=== PATIENT | male | born 1950 | race Caucasian/White ===

== ENCOUNTER 2023-08-21 08:59 | Day surgery (SDC) | payer BC, SELFPAY ==
[2023-08-21] VITALS (13 sets, daily range): BP systolic 108–167; BP diastolic 48–78; BMI 35.2
[2023-08-21] MEDS: NSS 324 ML IV ×2 (09:37→09:45)
[2023-08-21 09:38] LABS: Glucose - Point of Care 357 mg/dl (70-99)
[2023-08-21] MEDS: LOW STRENGTH ASPIRIN 81 MG PO (09:38)
[2023-08-21 09:44] LABS: Hematocrit 36.9 % (39.0-52.0); Hemoglobin 12.5 g/dL (13.0-18.0); Mean Corp Hgb Conc. 33.9 g/dL (33.0-37.0); Mean Corpuscular Hgb 30.2 pg (27.0-31.0); Mean Corpuscular Volume 89.1 fL (80.0-94.0); Platelet Count 748 10^3/uL (130-400); Red Blood Cell Count 4.14 10^6/uL (4.70-6.10); Red Cell Dist. Width 17.7 % (11.5-14.5); White Blood Cell Count 11.8 10^3/uL (4.8-10.8)
[2023-08-21 10:18] LABS: Mean Platelet Volume 11.1 fL (7.4-10.4)
[2023-08-21] MEDS: NOVOLOG vial 4 UNITS SC (10:25)
--- NOTE | 2023-08-21 11:59 | ITS.CL.CATH ---
[employer] - Catheterization
Cardiac Catheterization
Procedure Report:
LEFT HEART CATHETERIZATION
Date of Procedure: August 21, 2023
Procedures performed:
1: Coronary angiography
2: Left ventriculography
Primary Care Physician: Dr. Marsha Alfredo
Primary Automatic Bow Maker Machine Tender: Myself
INDICATION: The patient is a 73-year-old male with a past medical history of coronary artery disease status post right coronary stenting in the setting of an inferior SD in 2014, hypertension, poorly controlled diabetes mellitus, ongoing smoking,
and regular EtOH use. He had a drop in ejection fraction on echocardiography and nuclear perfusion scan done on August showed both RCA and LAD territory perfusion defects consistent with extensive inferior and inferolateral infarct with
LAD apical infarct and anterior and anteroseptal ischemia. Gated ejection fraction was 25%. Ejection fraction by echo in January of last year was estimated at 45 to 50% which I suspect is more accurate. He has had absolutely no symptoms.
ACCESS: The patient was prepped and draped in usual sterile fashion. A 6 [place] sheath was placed in the right radial artery using the Seldinger over the wire technique.
HEMODYNAMIC FINDINGS (mmHg):
LV(s/d,EDP): 142/13, 23
Ao(s/d,m): 142/60, 92
ANGIOGRAPHIC FINDINGS:
Single-plane Left Ventriculography in ESCALANTE Projection: Inferobasal akinesis. Moderate to severe diaphragmatic hypokinesis. Severe apical hypokinesis. Mild to moderate anterolateral hypokinesis. Overall moderate to severe LV dysfunction with a
visually estimated ejection fraction of 35 to 40%. No significant mitral regurgitation.
Coronary Angiography:
Dominance: Right
Left Main: Large caliber, patent.
Left Anterior Descending: The LAD is heavily calcified throughout the proximal and midportion. The proximal LAD has diffuse 40 to 50% disease and gives rise to a fairly large high bifurcating diagonal branch that is widely patent with diffuse
moderate luminal irregularities. The mid LAD has a preocclusive heavily calcified 95% stenosis with preserved distal flow into a moderately diseased mid and distal LAD that appears to be a reasonable surgical target. This disease is markedly
progressed compared to prior angiography in 2015.
Ramus intermedius: There is a fairly large ramus intermedius branch which is widely patent.
Left Circumflex: The left circumflex is a medium caliber nondominant system that gives rise to 2 medium caliber obtuse marginal branches. These vessels have mild luminal irregularities with normal distal flow and no obstructive disease.
Right Coronary: The right coronary artery is occluded in the midportion. The large distal dominant system fills via left to right collaterals. There appears to be a reasonable surgical target in the right PDA.
Fluoroscopy Time (min): 5.2
Radiation Dose (mGy): 647
DAP (Gy.cm2): 49
Closure device: None. A TR band was applied for hemostasis at the right wrist.
Complications: None.
ASSESSMENT:
1: Complex calcific two-vessel obstructive coronary disease.
2: LV systolic dysfunction with no significant mitral regurgitation.
CONCLUSIONS and RECOMMENDATIONS:
1: CT surgical evaluation for CABG. Ideally the patient would get a BOURNE to LAD and a graft to the distal right coronary system.
Michell Platt M.D.
Copy to: Dr. Marsha Alfredo, Dr. Bishop Denise
[2023-08-21 12:03] LABS: Blood Urea Nitrogen 34 mg/dl (9-20); Calcium 8.8 mg/dl (8.4-10.2); Carbon Dioxide 23 mmol/L (22-30); Chloride 107 mmol/L (98-107); Estimated Creatinine Clearance 89 ml/min; Glucose 284 mg/dl (70-99); Potassium 4.6 mmol/L (3.5-5.1); Sodium 135 mmol/L (135-145); eGFR > 60.00
[2023-08-21 12:07] LABS: Glucose - Point of Care 267 mg/dl (70-99)
[2023-08-21] MEDS: NSS 1000 IV (12:33)
[2023-08-21] MEDS: NOVOLOG FLEXPEN-LOW RESISTANCE 3 UNITS SC (12:42)
--- NOTE | 2023-08-21 12:50 | PTCARENOTE ---
1230: FORTUNATO Flores at bedside to speak with pt. and give appointment info.
[2023-08-21 13:02] LABS: Glycohemoglobin (HgbA1c) 11.4 % (4.0-5.6)
== END 2023-08-21 14:50 | disposition home or self-care (01) ==
LOC: CATH 08:59
PROVIDERS: Nurse Practitioner; ATTENDING PHYSICIAN Internal Medicine Interventional Cardiology; CONSULT PHYSICIAN Thoracic Surgery (Cardiothoracic Vascular Surgery); FAMILY PHYSICIAN Family Medicine
DX: I25.10 Atherosclerotic heart disease of native coronary artery without angina pectoris (principal); Z87.891 Personal history of nicotine dependence; E11.9 Type 2 diabetes mellitus without complications; I10 Essential (primary) hypertension; I25.2 Old myocardial infarction; Z95.5 Presence of coronary angioplasty implant and graft
CPT/HCPCS: 80048; 82962; 83036; 85027; 93005; 93458; C1769; C1894; Q9967

== ENCOUNTER → 2023-09-06 07:01 | Outpatient (REF) | payer MEDICARE, OTHER, SELFPAY | LOC: RAD 07:01 | PROVIDERS: ATTENDING PHYSICIAN Thoracic Surgery (Cardiothoracic Vascular Surgery); FAMILY PHYSICIAN Family Medicine | DX: I25.10 Atherosclerotic heart disease of native coronary artery without angina pectoris (principal); Z01.818 Encounter for other preprocedural examination | CPT/HCPCS: 71250 ==

== ENCOUNTER 2023-09-16 08:18 | Inpatient (IN) | payer MEDICARE, OTHER, SELFPAY ==
[2023-09-10 08:30] VITALS: BMI 36.5
[2023-09-10 09:15] LABS: % Eosinophils 2.5 % (0-6); % Immature Granulocytes 0.7 % (0-0.5); % Lymphocytes 16.5 % (20.5-51.1); % Neutrophils 73.3 % (42.2-75.2); Absolute Basophils 0.2 10^3/uL (0-0.2); Absolute Eosinophils 0.3 10^3/uL (0-0.7); Absolute Immature Granulocytes 0.1 10^3/uL (0-0.05); Absolute Lymphocytes 1.7 10^3/uL (1.2-3.4); Absolute Monocytes 0.5 10^3/uL (0.1-0.6); Absolute Neutrophils 7.6 10^3/uL (1.4-6.5); Hematocrit 36.8 % (39.0-52.0); Hemoglobin 12.3 g/dL (13.0-18.0); Mean Corp Hgb Conc. 33.4 g/dL (33.0-37.0); Mean Corpuscular Volume 89.8 fL (80.0-94.0); Nucleated Red Blood Cells % 0 % (-); Platelet Count 726 10^3/uL (130-400); Red Cell Dist. Width 17.7 % (11.5-14.5); White Blood Cell Count 10.3 10^3/uL (4.8-10.8)
[2023-09-10 09:26] LABS: INR 1.13; PT 14.3 Sec (11.4-14.6)
[2023-09-10 09:27] LABS: APTT 35.9 Sec (23.4-35.0)
[2023-09-10 09:56] LABS: ALT (SGPT) 22 U/L (0-50); AST (SGOT) 29 U/L (17-59); Albumin 4.4 g/dl (3.5-5.0); Alkaline Phosphatase 70 U/L (38-126); Blood Urea Nitrogen 33 mg/dl (9-20); Calcium 9.2 mg/dl (8.4-10.2); Carbon Dioxide 27 mmol/L (22-30); Chloride 104 mmol/L (98-107); Estimated Creatinine Clearance 72 ml/min; Glucose 180 mg/dl (70-99); Potassium 5.4 mmol/L (3.5-5.1); Sodium 137 mmol/L (135-145); Total Bilirubin 0.5 mg/dl (0.2-1.3); Total Protein 7.1 g/dl (6.3-8.2); eGFR > 60.00
[2023-09-10 10:17] LABS: Urine Albumin Trace (Neg - Trace); Urine Bilirubin Negative (Negative); Urine Character Clear (Clear); Urine Color Yellow; Urine Glucose 1+ (Negative); Urine Ketone Negative (Negative); Urine Leukocyte Negative (Negative); Urine Nitrite Negative (Negative); Urine Occult Blood Negative (Negative); Urine Specific Gravity 1.015 (<1.030); Urine Urobilinogen Negative (Neg - 1+); Urine pH 6.5 (5.0-9.0)
--- NOTE | 2023-09-10 10:53 | CM ---
spoke to pt in PAT's, we discussed preop CABG teaching including sternal and driving restrictions, he is prev indep, lives with his in a 2 story home with 2 steps to enter. he has the cardiac educ book, soap and instructins, he is agreeable to
a f/u visit from the ct transitional care nurses after dc. plan isf or CABG 09/15, cm role explained and all questions answered.
[2023-09-16] VITALS (16 sets, daily range): BP systolic 79–131; BP diastolic 46–71; BMI 34.7
--- NOTE | 2023-09-16 00:31 | W.PN.CT ---
Assessment / Plan
-
Assessment:
-S/p Off-pump CABG x 2 (in situ BOURNE to LAD, aorta to RSVG to RPDA)/Endoscopic harvest of right lower extremity
-Severe 2V CAD (involving LAD/RCA)
-Hx Inf. GA S/P PCI with JANNA to prox RCA, 07/11/2014
-ICM (LVEF 35-40% per cath 08/2023), improved to 50% per intraop CARLOS
-HTN
-HLD
-IDT2DM (A1C 11.4)
-Class 2 obesity (BMI 36.5)
-Suspected GBAY
-Active tobacco abuse (60 pk/yr)
-Hx hyperkalemia
-Acute postop blood loss/Anemia on chronic anemia (stable without transfusion)
-Acute postop thrombocytosis on chronic thrombocytosis (stable)
-Acute postop atelectasis/pleural effusion
-Acute postop hypocalcemia
-Acute postop hypovolemia with subsequent hypervolemia
Plan:
-No major issues overnight. Hemodynamically and neurologically intact
-Successfully extubated yesterday 09/16/23 @ 1855
-Weaned off of Levophed gtt last night, remains on insulin gtt per protocol
-Last CI , u/o since OR mL
-Monitor chest tube output: 2meds , L pleural
-D/C'd swan and a-line this AM @ 0430
-Transfer to tele phase tomorrow once off insulin gtt. Will benefit from diabetes education/management given hgb A1C of 11.4
-D/C ng catheter
-Maintain cordis
-No temporary pacer
-Cont. current meds (ASA, Amiodarone, Lipitor, Lopressor- held last night given hypotension on Levophed; add Plavix)
-Encourage use of IS
-Wean off of O2 as tolerated
-OOB into chair/Ambulate
Subjective
-
Date of Service: September 16, 2023
Objective Data
-
PT 14.3 Sec (11.4-14.6) 09/10/23 08:45
INR 1.13 09/10/23 08:45
APTT 35.9 Sec (23.4-35.0) H 09/10/23 08:45
--- NOTE | 2023-09-16 08:00 | PTCARENOTE ---
Pt admitted, to CVICU, Surgical clip and prep preformed. ABO and labs obtained. Pt given pre op meds as ordered. Questions answered.
--- NOTE | 2023-09-16 08:41 | CM ---
Reviewed chart. Mr. Valdez is in the operating room today. Prior to admission he resides with his spouse in a two story home with two steps to enter. Will need to see his functional level post surgery to see if he will have any skilled care
needs. Medical work-up in progress. The discharge plan is undetermined at this time.
[2023-09-16] MEDS: BACTROBAN 2% OINTMENT 1 APPLIC NASAL ×2 (08:50→20:56)
[2023-09-16] MEDS: COREG 3.125 MG PO (08:51)
[2023-09-16] MEDS: PROTONIX 40 MG PO (08:51)
[2023-09-16 08:52] LABS: Hemoglobin 12.4 g/dL (13.0-18.0); Mean Corp Hgb Conc. 32.6 g/dL (33.0-37.0); Mean Corpuscular Hgb 29.5 pg (27.0-31.0); Mean Corpuscular Volume 90.3 fL (80.0-94.0); Mean Platelet Volume 11.1 fL (7.4-10.4); Platelet Count 778 10^3/uL (130-400); Red Blood Cell Count 4.21 10^6/uL (4.70-6.10); Red Cell Dist. Width 18.4 % (11.5-14.5); White Blood Cell Count 10.5 10^3/uL (4.8-10.8)
[2023-09-16 08:54] LABS: Blood Urea Nitrogen 34 mg/dl (9-20); Calcium 9.5 mg/dl (8.4-10.2); Carbon Dioxide 27 mmol/L (22-30); Chloride 108 mmol/L (98-107); Estimated Creatinine Clearance 66 ml/min; Glucose 63 mg/dl (70-99); Magnesium 2.1 mg/dl (1.6-2.3); Potassium 4.9 mmol/L (3.5-5.1); Sodium 140 mmol/L (135-145); eGFR > 60.00
--- NOTE | 2023-09-16 09:21 | PTCARENOTE ---
Blood sugar on lab work 63, CT PA notified, INT placed in Rt AC, 1/2 amp D50 ordered will administer and recheck per protocol.
[2023-09-16] MEDS: DEXTROSE 50% SYRINGE 12.5 GRAMS IV (09:28)
[2023-09-16] MEDS: MAGNESIUM OXIDE 500 MG PO (09:29)
[2023-09-16 09:53] LABS: Glucose - Point of Care 127 mg/dl (70-99)
--- NOTE | 2023-09-16 11:55 | W.CVOR.SURPR ---
CVOR Surgeon Immed Pre Op
-
I have examined this patient prior to performance of the scheduled procedure.
The patient's condition is unchanged from the time of the dictated/written History and
Physical and the patient is able to undergo the scheduled procedure.
Sternotomy CABG x 2 +/- ROSS Clip
--- NOTE | 2023-09-16 12:23 | CON.INTV ---
Consultation
Consultation Request
Date/Time Consultation Requested: 09/16/2023-1 PM
Date/Time Consultation Performed: 09/16/2023-1:30 PM
Requesting Provider: Cardiothoracic surgery
Performing Provider: Dr. Linder
Reason for Consultation: Postop ventilator/critical care management
Medical History
-
Chief Complaint: CAD
History of Present Illness:
73-year-old male with underlying hypertension, hyperlipidemia, diabetes and CAD underwent CABG and cap maker consulted for postoperative ventilator/critical care management 09/16/2023. Patient is sedated on the ventilator and review of systems was
unobtainable. Operative records were reviewed. Pressors and ventilator settings were reviewed and adjusted.
Past Medical History
Past Medical History: None (Hypertension. Hyperlipidemia. Hyperglycemia. CAD. Diabetes. Neuropathy.)
Social History
Tobacco: Smoker (5-10 for 50 years)
Alcohol: Occasional
Drug: None
Personal:
Living: With Family
Occupational Exposures: No known asbestos exposure
Environmental Exposures: No known tuberculosis exposure
Family History
Family History: Other (Hfzwcev-lirrcs-pzewh orange, mother-aneurysm, Father leukemia)
Allergies / Home Medications
Allergies
Allergy/AdvReac Type Severity Reaction Status Date / Time
pollen extracts Allergy SEASONAL Verified 09/16/23 08:22
ALLERGIES
Home Medications
Medication Instructions Recorded Confirmed Last Taken Type
aspirin 81 mg tablet,delayed 81 mg PO DAILY ##0 07/13/14 09/16/23 09/15/23 08:00 Rx
release
carvedilol 3.125 mg tablet 3.125 mg PO BID ##60 07/13/14 09/16/23 09/15/23 08:00 Rx
atorvastatin 40 mg tablet 40 mg PO DAILY 08/21/23 09/16/23 09/15/23 08:00 History
fenofibric acid (choline) 45 mg 45 mg PO DAILY 08/21/23 09/16/23 09/15/23 08:00 History
capsule,delayed release
hydroxyurea 500 mg capsule 1,000 mg PO DAILY 08/21/23 09/16/23 09/15/23 08:00 History
insulin NPH isoph U-100 human 100 23 unit SC HS 08/21/23 09/16/23 09/15/23 18:00 History
unit/mL subcutaneous suspension
(Humulin N NPH U-100 Insulin
(isophane susp))
insulin degludec 100 unit/mL (3 70 unit SC 08/21/23 09/16/23 09/15/23 18:00 History
mL) subcutaneous pen (Tresiba
FlexTouch U-100 insulin)
insulin lispro 100 unit/mL 0 sliding scale dose SC ACHS 08/21/23 09/16/23 09/15/23 16:00 History
subcutaneous pen
uggftldy-hy-gmtvm 300 mcg-K 60 1 tab PO DAILY 08/21/23 09/16/23 09/08/23 08:00 History
mcg-lycop 600 mcg-lutein 300 mcg
tablet (Centrum Silver Men)
Review of Systems
-
Unable to Obtain full review of systems at this time due to: Patient Intubation
Vitals / Labs / Diagnostic Testing
Vital Signs
Temp Pulse Pulse Ox
97.7 F 70 94
09/16/23 08:56 09/16/23 08:56 09/16/23 08:56
Lab Data
09/16/23 08:27
09/16/23 08:27
Diagnostic Testing:
Physical Exam
-
Exam:
Well-nourished and well-developed in no apparent distress
HEENT-atraumatic, normocephalic, oral tracheal intubation
Heart-regular rate and rhythm-no murmurs, rubs or gallops
Chest-clear to auscultation, no wheezes, crackles, median sternotomy bandage is not removed
Abdomen soft nondistended
Extremities-no cyanosis, clubbing, edema and good peripheral pulses
Integument-intact, no rashes, lesions or ecchymosis
Neurologically not alert, not oriented, not moving any of his extremities sedated on a ventilator
Assessment
-
73-year-old male with underlying hypertension, hyperlipidemia, diabetes and CAD underwent CABG and cap maker consulted for postoperative ventilator/critical care management 09/16/2023.
Assessment
Symptomatic coronary artery disease
Status post CABG x 2-BOURNE-LAD, aorta to RSVG to [facility]--Dr. Denise-09/16/2023
Mild anemia-hemoglobin 12.4-normocytic
Thrombocytosis-platelet count 772
Conditions present prior to admission:
Hypertension.
Hyperlipidemia.
Hyperglycemia.
CAD.
Cigarette smoker
Diabetes.
Neuropathy.
Obesity-BMI 34
Plan
Ventilator settings reviewed
FiO2 will be weaned
Minute ventilation will be adjusted
Arterial blood gases will be monitored
Spontaneous breathing trial will be attempted with hopeful extubation after anesthesia/sedation wear off
Pulmonary artery catheter parameters will be followed
Pressors/antihypertensive/inotropes/diuretics will be provided as needed
Monitor chest tube output
Monitor hemoglobin
Monitor platelet count and coags
Transfuse blood product if needed
CT surgery following chest tubes
Monitor blood sugar
Insulin drip per protocol
Aspiration precautions
VAP prevention protocol
DVT prophylaxis
Early nutrition
Early mobilization
Ongoing smoking cessation counseling
Outpatient pulmonary/sleep disorders workup-at risk for GABY
Critical care statement: A total of 46 minutes of critical care time was provided for this patient today. This includes management of ventilator, spontaneous breathing trial, arterial blood gases, pressors, of unstable vital signs, evaluation of the
patient at bedside, reviewing the patient's pertinent medical records including radiographs, microbiology, laboratory evaluations, and discussion with primary team and critical care nursing.
Diagnostic data:
CT chest 09/06/2023-no acute disease in the chest
Spirometry 09/10/2023-FEV1 2.7-94%, FVC 3.4-86%. Mild restriction
Echocardiogram 07/11/2014-EF 50-55%, normal diastolic filling pattern, trivial mitral regurgitation, PA systolic 23-28
Cardiac catheterization 08/21/2023-complex calcific two-vessel obstructive coronary disease EF 35-40% with no significant valvular disease
Data Reviewed
-
PFT: Report reviewed by me
EKG: Report reviewed by me
Radiology: Report reviewed by me
CT Scan: Report reviewed by me
Medical Tests (Nuc Med, Echo etc): Report reviewed by me
Labs: Labs reviewed by me
Critical Care Time (in minutes): 55
[2023-09-16 12:56] LABS: ACT+ - POC 98 Seconds (82-134)
[2023-09-16 12:59] LABS: B.E. - POC -1.3 mmol/L; Glucose - POC 79 mg/dl (65-99); HCO3 - POC 26 mmol/L (21-29); Hematocrit - POC 36 % PCV (42-52); Hemodilution- POC Yes; Hemoglobin Calculated - POC 12.1; Ionized Calcium - POC 1.28 mmol/L (1.12-1.27); O2 Saturation %Calculated-POC 98.2 5 (92-96); PCO2 - POC 52 mmHg (35-45); PO2 - POC 121 mmHg (80-100); Potassium - POC 3.8 mmol/L (3.6-5.0); Sodium - POC 144 mmol/L (135-145)
[2023-09-16 13:02] LABS: Urine Albumin Trace (Neg - Trace); Urine Bilirubin Negative (Negative); Urine Character Clear (Clear); Urine Color Yellow; Urine Glucose Negative (Negative); Urine Ketone Negative (Negative); Urine Leukocyte Negative (Negative); Urine Nitrite Negative (Negative); Urine Occult Blood Negative (Negative); Urine Urobilinogen Negative (Neg - 1+)
[2023-09-16] MEDS: ANCEF 10 IV (13:15)
[2023-09-16 14:28] LABS: ACT+ - POC 321 Seconds (82-134)
[2023-09-16 14:33] LABS: B.E. - POC -3.7 mmol/L; Glucose - POC 76 mg/dl (65-99); HCO3 - POC 23 mmol/L (21-29); Hematocrit - POC 30 % PCV (42-52); Hemodilution- POC No; Hemoglobin Calculated - POC 10.2; Ionized Calcium - POC 1.19 mmol/L (1.12-1.27); O2 Saturation %Calculated-POC 98.7 5 (92-96); PCO2 - POC 45 mmHg (35-45); PO2 - POC 134 mmHg (80-100); Potassium - POC 3.8 mmol/L (3.6-5.0); Sodium - POC 143 mmol/L (135-145); pH - POC 7.31 (7.35-7.45)
[2023-09-16 15:23] LABS: ACT+ - POC 101 Seconds (82-134)
[2023-09-16 15:37] LABS: B.E. - POC -4.1 mmol/L; Glucose - POC 79 mg/dl (65-99); HCO3 - POC 22 mmol/L (21-29); Hematocrit - POC 28 % PCV (42-52); Hemodilution- POC No; Hemoglobin Calculated - POC 9.5; Ionized Calcium - POC 1.15 mmol/L (1.12-1.27); PCO2 - POC 44 mmHg (35-45); PO2 - POC 99 mmHg (80-100); Potassium - POC 3.9 mmol/L (3.6-5.0); Sodium - POC 144 mmol/L (135-145); pH - POC 7.31 (7.35-7.45)
--- NOTE | 2023-09-16 15:38 | W.PN.CT.SURG ---
CT Surgery Operative Note
-
CARDIAC SURGERY OPERATIVE REPORT
Preoperative Diagnosis: Multivessel Coronary Artery Disease with proximal and mid LAD disease, DISH MAKER of the RCA
Postoperative Diagnosis: Same
Procedure(s) Performed:
1. Standard sternotomy
2. Off-pump CABG x 2 [in situ BOURNE to LAD, aorta to RSVG to RPDA]
3. Transesophageal echocardiography
4. Endoscopic harvest of right lower extremity
Date of Surgery: 09/16/23
Comorbidities:
1. Multivessel CAD with prior RI and stents
2. Hypertension
3. Hyperlipidemia
4. Diabetes mellitus
5. Diabetic neuropathy
6. Dilated ischemic cardiomyopathy
Attending Surgeon: Good Denise MD, MS
Assistants: Good Smith PA-C (present and necessary to investment sales assistant, endoscopic vein harvest, retraction, suction, exposure, suture management, and wound closure under my direction)
Anesthesiology: Tahir Carty MD and Lisseth Wu CRNA
Scrub and Circulating RNs: Max Pozo, RN, Sherrill Pino RN
Ash Collector: Lorenza Davey CCP
Anesthesia: GETA
EBL: per perfusion records, Cell Saver was used
Products: None
Implants: None
Indication(s) for Procedures: This is a 73-year-old male who has a significant history for coronary artery disease status post stenting for his inferior RI in 2015. He has been having exertional angina with shortness of breath over the last year
that has been worsening. He underwent left heart cath which demonstrated proximal and mid LAD disease as well as a DISH MAKER lesion to his RCA with kryu-us-mtjct collateralization to his RPDA and RPL branches. Given the involvement of his proximal LAD
disease and his diabetic status, he met indication for surgical intervention.
Conduit(s) Quality/Internal Diameter:
BOURNE -excellent skeletonized/good flow
RSVG -average, large size, some thickening/overall uniform with good flow
Target(s) Quality:
dRCA -good/1.5 mm flow probe assessment with mean flow 115 mL/min with a pulsatility index of 2.5
LAD -good/heavily calcified proximally, for a 1.5 mm shunt mm, flow probe assessment with a mean flow of 75 mL/min, pulsatility index of 1.9
Findings: Left ventricular ejection fraction preoperatively was reduced to approximately 45%, there was regional wall motion abnormalities corresponding to the inferior aspect of his LV with his known history of an RI involving the RCA, following
surgery his EF appeared to be the same with no new regional wall motion abnormalities. The BOURNE was harvested in a skeletonized fashion. Each graft was verified with Doppler probe to have excellent signals.
Description of Procedure: The patient was taken to the operating room. Their identity and procedure to be performed were verified and they were positioned supine on the operating table. Induction via general anesthesia with endotracheal intubation
was performed and central venous access and arterial monitoring were inserted. A preoperative transesophageal echocardiogram was performed to assess cardiac function and valvular function. The patient was then prepped and draped from chin to feet in
a sterile fashion. A preoperative time-out was performed with all members of the team present. A midline chest incision was performed along with median sternotomy. Simultaneous endoscopic access of the right lower extremity for saphenous vein
harvest was obtained along with administration of an initial 5,000 units of IV heparin. A RulTract sternal retractor was positioned to exposure the left internal mammary bed. The mammary was harvested and found to have good flow. A medium size clip
was applied to the distal end of the mammary after dividing it. It was wrapped in a papaverine soaked RayTec and replaced back into the left hemithorax. The RulTract was exchanged for a median sternal retractor. The innominate vein was isolated.
Full heparinization was given. We created a pericardial well. The ACT was confirmed to be over 400. The patient's temperature was allowed to drift down to 35 �C.
A suitable target on the mid/distal left anterior descending was identified. We dissected and prepared the distal target and created a coronary arteriotomy and placed a 1.5mm coronary shunt. We retrieved the BOURNE from the chest and created a
pericardial opening while being cognizant of the phrenic nerve to facilitate the course of the mammary. The distal end of the mammary was prepped and beveled to size. We verified orientation and length of the MARIELY and found brisk flow. An end-to-side
anastomosis was created with a 7-0 prolene. The distal right coronary was then exposed using the off-pump retractor. The RPDA coronary artery was then dissected in a similar fashion and an arteriotomy was created. A 1.5mm coronary shunt was
inserted. The distal anastomosis was performed using 7-0 prolene in an end-to-side fashion. The graft was measured for length to the aorta and cut. A second 4.3 mm heartstring device was used to create an aortotomy in the proximal RCA graft
anastomosis was created with a 6-0 Prolene suture. At the the same time, we re-warmed to 36.5 degrees centigrade. All bypass grafts were inspected and were free from kinking or twisting and Doppler probe was used to examine flow to the grafts.
The distal and proximal anastomoses appeared hemostatic. I did have to place one repair suture at the lateral aspect of the BOURNE-LAD anastomosis. A test dose of protamine was administered and the patient was monitored for any adverse reaction
before resuming protamine. The mammary bed was inspected and hemostasis was confirmed. Once the mediastinum was hemostatic, #19 Cortez drain was placed in the left pleural cavity and two #24 Cortez drains were placed within the pericardium. The
sternum was approximated with 4 #7 singles and 3 #8 double stainless steel wires. Fascia was approximated with #1 vicryl suture. The subcutaneous, dermis and epidermis were closed in layers in a running fashion. The skin wound was cleansed and
dressed.
All instrument, sponge, and needle counts were confirmed to be correct x 2 at the end of the operation. The patient was transferred to the cardiac intensive care unit in critical but stable condition.
I, Dr. Good Denise, was present, scrubbed for, and performed all critical elements of this procedure.
Good Denise MD, MS
Cardiothoracic Surgeon
[facility]
This operative dictation was created using the Comecer dictation system. Please excuse any grammatical, typographical, or 'sound alike' errors
[2023-09-16 16:18] LABS: Glucose - Point of Care 92 mg/dl (70-99)
[2023-09-16] MEDS: ALBUMIN 5% 250 IV ×2 (16:22→22:46)
[2023-09-16 16:24] LABS: B.E. -3.4 mmol/L; HCO3 23.1 mmol/L (21-28); Hematocrit 31.3 % (39.0-52.0); Hemoglobin 10.5 g/dL (13.0-18.0); Ionized Calcium 1.18 mMOL/L (1.15-1.33); O2 Saturation % 97.5 % (94-98); PCO2 47 mmHg (35-48); PO2 87 mmHg (83-108); Platelet Count 733 10^3/uL (130-400); Potassium 4.3 mMOL/L (3.5-5.1); Sodium 139 mMOL/L (136-145)
[2023-09-16] MEDS: NOVOLOG FLEXPEN SC ×2 (16:31)
[2023-09-16] MEDS: PACERONE PO (16:31)
[2023-09-16] MEDS: NEURONTIN PO (16:31)
[2023-09-16] MEDS: NSS 500 IV (16:31)
[2023-09-16] MEDS: TYLENOL PO (16:31)
--- NOTE | 2023-09-16 16:32 | PTCARENOTE ---
Patient received from CVOR. Patient is unresponsive s/p anesthesia. Unable to assess orientation and muscle strength grading. RASS -4. Pupils 4mm sluggish bilaterally. NSR with occasional monomorphic PVCs. HR 60s. Distant heart tones. No wires. L
radial a-line maintained. BP 100s-110s/40s with MAPs 60s. RIJ cordis and swan maintained at 45cm. PA pressures 30s/10s. CVP 10. CO 5.05, CI 2.29, SVR 1029. PIV maintained. Patient received on precedex gtt at 0.5mcgs/kg/hr. Received Nitro gtt on
standby. Received levo gtt on standby. Received insulin gtt on standby. Cordis and VIP KVOs adjusted. Palpable pulses. No edema. 8.0 ETT, 23 at the lip. Ventilator settings: SIMV. RR 14, TV 500, PEEP 5, FiO2 60%. Oxygen saturation 95%. Upon
auscultation, bilateral anterior lung sounds are diminished. Mouth care provided. Scant clear, thick secretions. CTx3 maintained to -20cm wall suction. MS CTx2 have small red drainage. LP CT has minimal red drainage. No air leaks or tidaling noted.
NPO. Abdomen round, obese. Hypoactive BS. Nixon maintained with decreased yellow UOP. Complete bedrest s/p CVOR. Assist x2 to turn/reposition. Sternal incision is approximated with surgical adhesive and open to air. R groin puncture site is
approximated with surgical adhesive and open to air. R knee incision is approximated with surgical adhesive and covered by gladys bandage. Will continue to monitor.
--- NOTE | 2023-09-16 16:36 | CON.CAR ---
Addendum entered and electronically signed by Yong Cantu MD 09/16/23 18:00:
I saw and examined the patient.
The CALCINER FEEDER or PA's note was reviewed and I agree with the note.
Comment: Intubated and sedate
Neck: Supple, no JVD, HJR, carotids +2 B/L, no bruits bilaterally.
Heart: Non displaced PMI, RRR, no murmurs, No S3, S4, no rubs.
Lungs: Scattered rhonchi
Sternal dressings noted
Extremities: No clubbing, cyanosis or edema bilaterally.
Neuro: Intubated and sedated
Kalia has a history of CAD status post inferior wall LA and RCA stent in 2014, hypertension, diabetes, tobacco abuse, cardiomyopathy ejection fraction 25% on echo in January 2023, 25% by perfusion imaging in August 2023 and 35-40% by V- gram in
August 2023. He is seen immediately postop status post coronary bypass with BOURNE to LAD and vein graft to RPDA. He is intubated and sedated at present. He has a cardiac index of 2.3 on low-dose Levophed. PA pressure
Remains in sinus rhythm. Cardiovascular stable at present to be extubated soon. Reportedly ejection fraction 50% at the end of procedure. Only repeat echocardiogram at some point. Of note he was on Coreg prior to admission and was not on
SHUBHAM/ARB/ARNI/aldosterone antagonist for unclear reasons. Might consider trying to start prior to discharge. Eventually restart Lipitor. Discussed with CT PA and nursing.
Original Note:
Consultation
Consultation Request
Date/Time Consultation Requested: 09/16/23
Date/Time Consultation Performed: 09/16/23
Requesting Provider: Dr. Denise
Performing Provider: Dr. Cantu
Reason for Consultation: Post-op CABG
Medical History
-
History of Present Illness:
Patient came to for planned CABG today and cardiology has been consulted post-op. Patient follows with Dr. Platt and had cardiac cath at 08/21/23 after outpatient echo showed newly reduced EF and stress test showed new LAD and RCA territory
ischemia. Patient has a h/o IWMI and RCA PCI in 2014. He still smokes as well as being a diabetic. Patient was found to have multivessel CAD on cath and then saw Dr. Denise in the office as an outpatient where he was recommended CABG. Patient is now
seen in CVICU post-op where he remains intubated and sedated. Levophed running at 2.
PMH:
CAD s/p IWMI and RCA PCI in 2014
HTN
DM 2
Active smoker
ICM, EF 45% by echo at [facility] 01/29/23, EF 25% by perfusion imaging 08/14/23, 35-40% by v-gram 08/21/23
Past Medical History
Past Medical History: Other (in HPI)
Past Surgical History: Cardiac (PCI)
Social History
Tobacco: Smoker
Alcohol: Occasional
Drug: None
Personal:
Living: With Family
Family History
Family History: CAD and Cancer
Allergies / Home Medications
Allergy/AdvReac Type Severity Reaction Status Date / Time
pollen extracts Allergy SEASONAL Verified 09/16/23 08:22
ALLERGIES
Medication Instructions Recorded Confirmed Type
aspirin 81 mg tablet,delayed 81 mg PO DAILY ##0 07/13/14 09/16/23 Rx
release
carvedilol 3.125 mg tablet 3.125 mg PO BID ##60 07/13/14 09/16/23 Rx
atorvastatin 40 mg tablet 40 mg PO DAILY 08/21/23 09/16/23 History
fenofibric acid (choline) 45 mg 45 mg PO DAILY 08/21/23 09/16/23 History
capsule,delayed release
hydroxyurea 500 mg capsule 1,000 mg PO DAILY 08/21/23 09/16/23 History
insulin NPH isoph U-100 human 100 23 unit SC HS 08/21/23 09/16/23 History
unit/mL subcutaneous suspension
(Humulin N NPH U-100 Insulin
(isophane susp))
insulin degludec 100 unit/mL (3 70 unit SC HS 08/21/23 09/16/23 History
mL) subcutaneous pen (Tresiba
FlexTouch U-100 insulin)
insulin lispro 100 unit/mL 0 sliding scale dose SC ACHS 08/21/23 09/16/23 History
subcutaneous pen
iudiuvez-db-nwwqi 300 mcg-K 60 1 tab PO DAILY 08/21/23 09/16/23 History
mcg-lycop 600 mcg-lutein 300 mcg
tablet (Centrum Silver Men)
Review of Systems
-
History Source: Transfer Record
All other systems: Negative unless noted
Physical Exam
Vital Signs
Temp Pulse Resp BP Pulse Ox
97.3 F 64 14 101/46 95
09/16/23 16:22 09/16/23 16:22 09/16/23 16:22 09/16/23 16:22 09/16/23 16:22
GEN: NAD. Sedated
HEENT: MMM
LUNGS: Intubated and on the ventilator without wheeze
CV: Reg
ABD: soft, BS+
EXT: No clubbing, cyanosis, lesions or edema B/L
NEURO: Sedated
SKIN: Warm, dry and pink. No rash
Impression / Plan
-
PCP: Dr. Marsha Alfredo
Cardiology: Dr. Platt
Impression:
CAD s/p CABG with BOURNE to LAD and SVG to RPDA
CAD s/p IWMI and RCA PCI in 2014
HTN
DM 2
Active smoker
ICM, EF 45% by echo at [facility] 01/29/23, EF 25% by perfusion imaging 08/14/23, 35-40% by v-gram 08/21/23, 50% by post-op CARLOS 09/16/23
Echo 01/29/23: [facility] study, EF 45-50%, mod conc LVH, apex, mid and apical anterior septum, apical anterior segment and apical inferior segment are abnormal, aneurysmal anterior apex
Plan:
-Patient came to for planned CABG today and cardiology has been consulted post-op. Patient follows with Dr. Platt and had cardiac cath at 08/21/23 after outpatient echo showed newly reduced EF and stress test showed new LAD and RCA territory
ischemia. Patient has a h/o IWMI and RCA PCI in 2014. He still smokes as well as being a diabetic. Patient was found to have multivessel CAD on cath and then saw Dr. Denise in the office as an outpatient where he was recommended CABG. Patient is now
seen in CVICU post-op where he remains intubated and sedated. Levophed running at 2.
-Levophed running at 2 mcg/min. BP 101/46.
-ECG reviewed by me shows SR with lateral changes, but no acute ischemic changes.
-EF reportedly reduced by echo at [facility] and then 35-40% by v-gram 08/21/23. EF read at 50% by post-op CARLOS images. Will need to follow
-Prior to admission patient was taking Coreg 3.125 mg BID. He was not taking an SHUBHAM/ARB/ARNI/aldosterone antagonist. Will try to start prior to d/c
-LDL unknown, outpatient dose of atorvastatin 40 mg daily to eventually be restarted.
[2023-09-16 16:40] LABS: Blood Urea Nitrogen 36 mg/dl (9-20); Estimated Creatinine Clearance 79 ml/min; Glucose 95 mg/dl (70-99)
[2023-09-16 16:41] LABS: INR 1.35; PT 16.5 Sec (11.4-14.6)
[2023-09-16 16:42] LABS: APTT 36.6 Sec (23.4-35.0)
[2023-09-16] MEDS: DILAUDID 0.5 MG IV ×2 (16:52→21:12)
[2023-09-16 17:06] LABS: Glucose - Point of Care 105 mg/dl (70-99)
[2023-09-16] MEDS: ANCEF IV (17:33)
[2023-09-16 17:43] LABS: B.E. -3.1 mmol/L; HCO3 22.7 mmol/L (21-28); Ionized Calcium 1.13 mMOL/L (1.15-1.33); PCO2 43 mmHg (35-48); PO2 65 mmHg (83-108); pH 7.33 (7.35-7.45)
--- NOTE | 2023-09-16 18:00 | PTCARENOTE ---
Patient is waking up and following commands. He moves all extremities - squeezes hands bilaterally and wiggles toes. He nods appropriately to answer questions. Patient placed on CPAP by respiratory therapist at 1800. Patient tolerating. RR 12-16 TV
400-600cc. Oxygen saturation 92%. 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
[2023-09-16 18:05] LABS: Glucose - Point of Care 114 mg/dl (70-99)
[2023-09-16] MEDS: CALCIUM CHLORIDE 10% SYRINGE 50 MG IV (18:21)
[2023-09-16] MEDS: CALCIUM CHLORIDE 10% SYRINGE 50 ML IV (18:21)
[2023-09-16 18:47] LABS: B.E. -2.7 mmol/L; HCO3 22.6 mmol/L (21-28); O2 Saturation % 97.6 % (94-98); PCO2 40 mmHg (35-48); PO2 79 mmHg (83-108); pH 7.36 (7.35-7.45)
--- NOTE | 2023-09-16 19:05 | PTCARENOTE ---
ABG results came back - CT LINE CREWMAN notified and said okay to extubate, order placed. Respiratory therapist and RN extubated patient at 1855 to 6L NC. Patient tolerated. Oxygen saturation 95%. Mouth care provided post extubation.
[2023-09-16] MEDS: ZOFRAN 4 MG IV (19:25)
[2023-09-16] MEDS: DILAUDID 0.25 MG IV (19:26)
[2023-09-16 19:32] LABS: Glucose - Point of Care 95 mg/dl (70-99)
[2023-09-16] MEDS: LR 1000 IV (19:45)
[2023-09-16 20:28] LABS: Glucose - Point of Care 115 mg/dl (70-99)
--- NOTE | 2023-09-16 20:30 | PTCARENOTE ---
Patient extubated at 1855 without difficulty. Patient A+A+Ox3. No neurological deficits noted. Speech clear. No c/o headache, dizziness or lightheadedness. Patient with c/o pain and nausea. Zofran 4mg IV administered without difficulty - No
further c/o nausea. No vomiting. IV Dilaudid 0.25 mg administered for pain management. O2 at 6L via NC with humidification. SaO2 95%. I.S. 1000 ml. Three chest tubes - Mediastinal x2 and Left Pleural - Intact and patent - 5 ml red drainage -
No air leak, tidaling or crepitus noted. Chest tube dressing intact. Sinus Rhythm. Heart rate 70's. Patient with no c/o chest pain, pressure or discomfort. Abdomen round, obese. Hypoactive bowel sounds in all four quadrants. No BM. No flatus
noted. Nixon catheter - Temperature sensing - Light kim, yellow urine. Outputs as documented. Afebrile. Right [place] Cordis with [place] Geovanna catheter. Left radial arterial line. A-Line, PAP, CVP with pressure bag/Saline flush - Flush without
difficulty - Zeroed and calibrated - Waveforms within normal limits. C.O. 5.22 C.I. 2.36. Sternal incision intact - surgical adhesive - open to air. Right groin intact. Right knee incision - surgical adhesive - Intact - [place] gladys wrap.
Positive, palpable pulses. Patient's at bedside. Dr. Denise arrived and talked with patient/. Assessment as documented.
[2023-09-16] MEDS: ANCEF 5 IV (20:54)
[2023-09-16] MEDS: SENOKOT-S 1 TABLET PO (20:56)
[2023-09-16] MEDS: LOW STRENGTH ASPIRIN 81 MG PO (20:57)
[2023-09-16 21:24] LABS: Glucose - Point of Care 132 mg/dl (70-99)
[2023-09-16 22:15] LABS: Glucose - Point of Care 144 mg/dl (70-99)
[2023-09-16 22:16] LABS: Hematocrit 30.6 % (39.0-52.0); Hemoglobin 10.3 g/dL (13.0-18.0); Platelet Count 658 10^3/uL (130-400)
[2023-09-16] MEDS: NEURONTIN 100 MG PO (22:48)
[2023-09-16] MEDS: PACERONE 200 MG PO (22:48)
[2023-09-16] MEDS: TYLENOL 1000 MG PO (22:48)
--- NOTE | 2023-09-16 23:00 | PTCARENOTE ---
Patient dozing intermittently. C.O. 5.34 C.I. 2.42. 5% Albumin 250 ml administered for diminishing urine output. LR at 80 ml/hr. No further changes from previous assessment.
[2023-09-16 23:03] LABS: Glucose - Point of Care 133 mg/dl (70-99)
[2023-09-17] VITALS (31 sets, daily range): BP systolic 88–116; BP diastolic 50–70; PULSE 78; O2SAT 93–94; BMI 35.8
[2023-09-17 00:14] LABS: Glucose - Point of Care 143 mg/dl (70-99)
[2023-09-17] MEDS: DILAUDID 0.25 MG IV (00:20)
--- NOTE | 2023-09-17 00:30 | PTCARENOTE ---
Patient A+A+Ox3. No neurological deficits noted. c/o moderate sternal pain - 5/10 -0.25 mg IV Dilaudid administered. C.O. 6.73 C.I. 3.05. No further changes from previous assessment.
[2023-09-17] MEDS: NOVOLIN R INSULIN INFUSION 100 IV ×2 (01:15→23:26)
[2023-09-17 01:18] LABS: Glucose - Point of Care 183 mg/dl (70-99)
[2023-09-17 02:15] LABS: Glucose - Point of Care 153 mg/dl (70-99)
--- NOTE | 2023-09-17 02:30 | PTCARENOTE ---
Glycemic Protocol started according to protocol. C.O. 7.08 C.I. 3.21. Patient resting in bed without difficulty. Assessment/Interventions as documented.
[2023-09-17 03:17] LABS: Glucose - Point of Care 154 mg/dl (70-99)
--- NOTE | 2023-09-17 03:55 | W.PN.CT ---
Today's Communication / Plan
-
Plan:
-No major issues overnight. Hemodynamically and neurologically intact
-Successfully extubated yesterday 09/16/23 @ 1855
-Weaned off of Levophed gtt last night, remains on insulin gtt per protocol
-Last CI 3.2, u/o since OR 455 mL
-Monitor cr 1.4, was 1.2 preop
-Monitor chest tube output: 2meds 120/170, L pleural 105/135
-Monitor WBC, 30.5, was 10.5 preop, Tm 99
-D/C'd swan and a-line this AM @ 0430
-Transfer to [facility] phase tomorrow once off insulin gtt. Will benefit from diabetes education/management given hgb A1C of 11.4
-D/C ng catheter
-Maintain cordis
-No temporary pacer
-Cont. current meds (ASA, Amiodarone, Lipitor, Lopressor- held last night given hypotension on Levophed; add Plavix)
-Encourage use of IS
-Wean off of O2 as tolerated
-OOB into chair/Ambulate
Assessment / Plan
-
Assessment:
-S/p Off-pump CABG x 2 (in situ BOURNE to LAD, aorta to RSVG to RPDA)/Endoscopic harvest of right lower extremity
-Severe 2V CAD (involving LAD/RCA)
-Hx Inf. [place] S/P PCI with JANNA to prox RCA, 07/11/2014
-ICM (LVEF 35-40% per cath 08/2023), improved to 50% per intraop CARLOS
-HTN
-HLD
-IDT2DM (A1C 11.4)
-Class 2 obesity (BMI 36.5)
-Suspected GABY
-Active tobacco abuse (60 pk/yr)
-Hx hyperkalemia
-Acute postop blood loss/Anemia on chronic anemia (stable without transfusion)
-Acute postop thrombocytosis on chronic thrombocytosis (stable)
-Acute postop leukocytosis (WBC 30.5, Tm 99)
-Acute postop atelectasis/pleural effusion
-Acute postop hypocalcemia
-Acute postop hypovolemia with subsequent hypervolemia
-Acute postop CARLI
Plan:
-No major issues overnight. Hemodynamically and neurologically intact
-Successfully extubated yesterday 09/16/23 @ 1855
-Weaned off of Levophed gtt last night, remains on insulin gtt per protocol
-Last CI 3.2, u/o since OR 455 mL
-Monitor cr 1.4, was 1.2 preop
-Monitor chest tube output: 2meds 120/170, L pleural 105/135
-Monitor WBC, 30.5, was 10.5 preop, Tm 99
-D/C'd swan and a-line this AM @ 0430
-Transfer to [facility] phase tomorrow once off insulin gtt. Will benefit from diabetes education/management given hgb A1C of 11.4
-D/C ng catheter
-Maintain cordis
-No temporary pacer
-Cont. current meds (ASA, Amiodarone, Lipitor, Lopressor- held last night given hypotension on Levophed; add Plavix)
-Encourage use of IS
-Wean off of O2 as tolerated
-OOB into chair/Ambulate
Discussed patient care with: Cardiology, Nursing, Respiratory Therapy, Pharmacy and Care Team
Subjective
Procedure
S/p Off-pump CABG x 2 (in situ BOURNE to LAD, aorta to RSVG to RPDA)/Endoscopic harvest of right lower extremity
-
Date of Service: September 17, 2023
Objective Data
-
PT 16.5 Sec (11.4-14.6) H 09/16/23 16:16
INR 1.35 09/16/23 16:16
APTT 36.6 Sec (23.4-35.0) H 09/16/23 16:16
Vital Signs
Vital Signs
Temp Pulse Resp BP Pulse Ox
98.9 F 79 16 98/61 95
09/17/23 03:00 09/17/23 03:00 09/17/23 03:00 09/17/23 03:00 09/17/23 03:[address]
CT Intake/Output/Weight
09/16/23 09/16/23 09/17/23
06:59 18:59 06:59
Intake Total 522.7 / 1945.7 1423.0 / 1945.7
Output Total 135 / 640 505 / 640
Balance 387.7 / 1305.7 918.0 / 1305.7
SaO2: 95
[2023-09-17 03:58] LABS: Hematocrit 28.2 % (39.0-52.0); Hemoglobin 9.5 g/dL (13.0-18.0); Mean Corp Hgb Conc. 33.7 g/dL (33.0-37.0); Mean Corpuscular Hgb 29.7 pg (27.0-31.0); Mean Corpuscular Volume 88.1 fL (80.0-94.0); Mean Platelet Volume 11.4 fL (7.4-10.4); Platelet Count 638 10^3/uL (130-400); Red Cell Dist. Width 18.1 % (11.5-14.5); White Blood Cell Count 30.5 10^3/uL (4.8-10.8)
[2023-09-17 04:06] LABS: Glucose - Point of Care 149 mg/dl (70-99)
[2023-09-17 04:25] LABS: Blood Urea Nitrogen 47 mg/dl (9-20); Calcium 8.7 mg/dl (8.4-10.2); Carbon Dioxide 20 mmol/L (22-30); Chloride 107 mmol/L (98-107); Estimated Creatinine Clearance 57 ml/min; Glucose 148 mg/dl (70-99); Potassium 5.1 mmol/L (3.5-5.1); Sodium 137 mmol/L (135-145); eGFR 53.07
[2023-09-17] MEDS: ANCEF 5 IV ×2 (04:59→11:00)
[2023-09-17] MEDS: CALCIUM CHLORIDE 10% SYRINGE 60 MG IV (05:00)
[2023-09-17] MEDS: TYLENOL 1000 MG PO ×3 (05:02→21:25)
[2023-09-17 05:10] LABS: Glucose - Point of Care 142 mg/dl (70-99)
[2023-09-17 06:30] LABS: Glucose - Point of Care 143 mg/dl (70-99)
--- NOTE | 2023-09-17 06:30 | PTCARENOTE ---
Patient A+A+Ox3. No neurological deficits noted. AM lab work collected and sent. EKG completed. Portable CXR completed. CHG bath completed and linens changed. Patient De-Lined. OOB to chair. c/o nausea - Zofran 4mg IV given.
Assessment/Interventions as documented.
[2023-09-17] MEDS: ZOFRAN 4 MG IV ×2 (06:59→15:30)
[2023-09-17] MEDS: LR IV (07:35)
--- NOTE | 2023-09-17 07:38 | W.PN.INTV ---
Today's Communication / Plan
Recommendations
Tolerated extubation
Weaned off norepinephrine
Insulin drip continues
Discontinue PA line and arterial line
Monitor leukocytosis and renal function
Maintain ICU status while on insulin drip
Assessment
-
73-year-old male with underlying hypertension, hyperlipidemia, diabetes and CAD underwent CABG and medical records technician consulted for postoperative ventilator/critical care management 09/16/2023.
Assessment
Symptomatic coronary artery disease
Status post CABG x 2-BOURNE-LAD, aorta to RSVG to [facility]--Dr. Denise-09/16/2023
Mild anemia-hemoglobin 12.4-normocytic
Thrombocytosis-platelet count 772
Elevated serum creatinine-CARLI
Hypocalcemia
Leukocytosis
Conditions present prior to admission:
Hypertension.
Hyperlipidemia.
Hyperglycemia.
CAD.
Cigarette smoker
Diabetes.
Neuropathy.
Obesity-BMI 34
Plan
Tolerated extubation
Wean FiO2
Encourage incentive spirometry
Increase activity
Aspiration precautions
Pulmonary artery catheter and arterial line will be removed
Pressors have been weaned-weaned off norepinephrine
Continue to monitor chest tube output
Follow hemoglobin
Continue to follow platelet count and coags
Transfuse blood product as needed
CT surgery following chest tubes as well
Follow blood sugar
Insulin supplementation continues as needed
Monitor renal function-serum creatinine 1.4-preop 1.2
Monitor leukocytosis, temperature, etc.
Early nutrition
Early mobilization
DVT prophylaxis
Patient remains on insulin drip and ICU status-medical records technician will continue to follow
Ongoing smoking cessation counseling
Outpatient pulmonary/sleep disorders workup-at risk for GABY
Reviewed the patient's pertinent medical records including radiographs, microbiology, laboratory evaluations, and discussion with primary team and critical care nursing.
Diagnostic data:
CT chest 09/06/2023-no acute disease in the chest
Spirometry 09/10/2023-FEV1 2.7-94%, FVC 3.4-86%. Mild restriction
Echocardiogram 07/11/2014-EF 50-55%, normal diastolic filling pattern, trivial mitral regurgitation, PA systolic 23-28
Cardiac catheterization 08/21/2023-complex calcific two-vessel obstructive coronary disease EF 35-40% with no significant valvular disease
Subjective Dataa
Subjective Data
Date of Service:
Date of Service: September 17, 2023
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
Subjective:
Tolerated extubation, no complaints of worsening shortness of breath, pain controlled, no abdominal pain
Review of Systems
General: Other (Per HPI)
Objective Data
Data Reviewed
Vital Signs / I&O / Oxygen:
Vital Signs
Temp Pulse Resp BP Pulse Ox
99.0 F 80 16 88/63 95
09/17/23 04:00 09/17/23 07:26 09/17/23 06:30 09/17/23 07:26 09/17/23 06:30
Intake and Output
09/16/23 09/17/23 09/18/23
06:59 06:59 06:59
Intake Total 2215.2 / 2215.2
Output Total 855 / 855
Balance 1360.2 / 1360.2
SaO2 [SIMV] 95
SaO2 95
Nasal Cannula flow liters per 4
minute
Physical Exam
General: Respiratory Distress (n) and Comfortable
HEENT: Normocephalic, Anicteric and Moist Mucous Membranes
Cardiovascular: Regular Rhythm
Respiratory: Wheeze (n), Crackles, Rhonchi (n), Non-Labored Respirations, Accessory Resp Muscle Use (n) and Stridor (n)
GI: Soft, Non Distended and Non Tender
Neurology: Awake, Alert and No Motor Deficits
Skin: Warm, Good Color, Cyanosis (n) and Jaundice (n)
Labs/Micro/Reports
Lab Data
09/17/23 03:38
09/17/23 03:38
Laboratory Results
09/16/23 09/16/23 09/16/23
16:16 17:35 18:40
PT 16.5 H
INR 1.35
APTT 36.6 H
pH 7.30 L 7.33 L 7.36
pCO2 47 43 40
pO2 87 65 L 79 L
HCO3 23.1 22.7 22.6
O2 Delivery Level
--- NOTE | 2023-09-17 07:52 | PTCARENOTE ---
Patient received from nightshift nurse. Patient is alert and oriented x4, pleasant. Patient c/o 5/10 sternal incision pain, does not want Roxicodone tablets or Dilaudid at this time - he has intermittent nausea. 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
Rub auscultated - most likely pericarditis. HR 70s-80s. No wires. BP 99/55 with MAP 69 via LUE BP cuff. RIJ cordis maintained with KVO. Insulin gtt maintained per critical care glycemic protocol. PIV maintained. Palpable pulses. +1 generalized
edema. 4L NC maintained. Oxygen saturation 96%. Upon auscultation, lung sounds diminished throughout with crackles 1/[address] up. CTx3 maintained to -20cm wall suction. MS CTs have small serosanguineous drainage. LP CT has minimal serosanguineous
drainage. No air leaks noted. Abdomen round, obese. Hypoactive BS. Patient states he is passing gas, burping, and hiccuping. Zofran administered by previous RN for nausea this AM. Nixon maintained with minimal yellow UOP. Assist x2 OOB into chair.
Sternal incision is approximated with surgical adhesive and open to air. CT dressing clean, dry, intact. R groin puncture site is approximated with surgical adhesive and open to air. R knee incision is approximated with surgical adhesive and covered
by gladys bandage. Will continue to monitor.
[2023-09-17] MEDS: PACERONE 200 MG PO ×3 (08:09→21:24)
[2023-09-17] MEDS: SENOKOT-S 1 TABLET PO ×2 (08:09→20:12)
[2023-09-17] MEDS: LOW STRENGTH ASPIRIN 81 MG PO (08:09)
[2023-09-17] MEDS: PLAVIX 75 MG PO (08:09)
[2023-09-17] MEDS: NEURONTIN 100 MG PO ×3 (08:10→21:24)
[2023-09-17] MEDS: BACTROBAN 2% OINTMENT 1 APPLIC NASAL ×2 (08:10→20:12)
[2023-09-17] MEDS: LIPITOR 40 MG PO (08:10)
[2023-09-17] MEDS: NOVOLOG FLEXPEN 4 UNITS SC ×3 (08:10→17:44)
[2023-09-17] MEDS: PROTONIX 40 MG PO (08:10)
[2023-09-17] MEDS: MAGNESIUM OXIDE 500 MG PO ×2 (08:10→20:12)
[2023-09-17 08:13] LABS: Glucose - Point of Care 149 mg/dl (70-99)
[2023-09-17] MEDS: LASIX IV (08:13)
[2023-09-17] MEDS: LASIX 40 MG IV (08:58)
[2023-09-17 10:05] LABS: Glucose - Point of Care 136 mg/dl (70-99)
--- NOTE | 2023-09-17 10:24 | PN.DE.MGMTRT ---
Insulin Management
- -
09/17/2023 Diabetes Management Consult
Patient is s/p CABG x 2, POD 1. PMH type 1 diabetes, HTN, hyperkalemia, HLD, hyperglycemia, CAD, neuropathy. A1C on admission 11.4%, CR 1.1, eGFR >60.
Patient is awake alert and oriented, oob in chair full participation in conversation. Patient states he was diagnosed with diabetes ~ 20 years ago, took metformin briefly then was started on insulin. He currently sees Dr. Azul endocrine in
[place]. Discussed his A1C, patient states that Dr. Azul started Tresiba @ HS and SS humalog AC just one month ago. Prior to admission patient was taking NPH 23 units @ HS, Tresiba 70 units @ HS and humalog ss before meals. He states
occasionally he will not require insulin pre meal since starting the Tresiba and humalog.
Will continue glycemic protocol until HS tomorrow and restart current regimen.
Patient has a working glucose monitor and tests 4 times per day.
Diabetes History
- -
Type of Diabetes: 2 requiring insulin
Pre-Admission Diabetes Regimen
09/16/23 09/17/23
16:16 03:38
Creatinine 1.0 1.4 H
Insulin Pump Settings
IP Diabetes Regimen
09/16/23 09/16/23 09/16/23
16:15 16:16 17:04
Glucose 95
POC Glucose 92 105 H
09/16/23 09/16/23 09/16/23
18:04 19:30 20:27
Glucose
POC Glucose 114 H 95 115 H
09/16/23 09/16/23 09/16/23
21:22 22:13 23:02
Glucose
POC Glucose 132 H 144 H 133 H
09/17/23 09/17/23 09/17/23
00:13 01:16 02:13
Glucose
POC Glucose 143 H 183 H 153 H
09/17/23 09/17/23 09/17/23
03:16 03:38 04:04
Glucose 148 H
POC Glucose 154 H 149 H
09/17/23 09/17/23 09/17/23
05:09 06:28 08:12
Glucose
POC Glucose 142 H 143 H 149 H
09/17/23
10:04
Glucose
POC Glucose 136 H
Meal type: Breakfast
Amount consumed: 80%
Patient Education
[2023-09-17 10:54] LABS: Glucose - Point of Care 124 mg/dl (70-99)
[2023-09-17] MEDS: FLEXERIL 5 MG PO ×2 (10:55→20:12)
--- NOTE | 2023-09-17 11:04 | PTCARENOTE ---
Vital signs stable. NSR with occasional monomorphic PVCs. HR 70s-80s. BP 109/70. RIJ cordis maintained with KVO. Insulin gtt maintained per critical care glycemic protocol. PIV maintained. RA. Oxygen saturation 91%. CTx3 maintained to -20cm wall
suction. Nixon maintained r/t decreased UOP. Patient ambulated in hallway with CR and RN. He got back into bed for a nap. Will continue to monitor.
--- NOTE | 2023-09-17 11:29 | W.PN.ANS.POP ---
Anesthesia Post Operative
- Anesthesia Post Op Note
Vital Signs Stable-See Nursing Note: Yes
Airway Patent: Yes
Adequate Pain Control: Yes
Change in Mental Status: No
Current Postoperative Nausea & Vomiting: No
Anesthesia Complications: No
General Anesthetic Recall: No
Unplanned Admission: No
Post Op Hydration Adequate: Yes
[2023-09-17 12:39] LABS: Glucose - Point of Care 136 mg/dl (70-99)
[2023-09-17 14:16] LABS: Glucose - Point of Care 121 mg/dl (70-99)
--- NOTE | 2023-09-17 14:25 | W.PN.CARDCBS ---
Addendum entered and electronically signed by Maritza Ortiz MD 09/17/23 16:30:
I saw and examined the patient.
The Communications Representative's note was reviewed and I agree with the note.
Comment: Overall patient is doing well hemodynamically however does complain of significant chest discomfort, mostly pleuritic in nature which sounds consistent with pericarditis per history.
Vital signs and lab work reviewed. EKG with diffuse ST changes consistent with likely pericarditis postoperatively. Pericardial rub noted on exam. Chest tubes are still in place.
Patient is off pressors now. His swelling and arterial line have been pulled out.
Recommendations:
1. Continue supportive postoperative care.
2. Continue amiodarone, daily baby aspirin and Plavix along with statin. We will resume his beta-richy as blood pressures allow.
3. Encourage out of bed into a chair and incentive spirometry.
Maritza Ortiz MD, [facility], [facility]
Original Note:
Today's Communication / Plan
-
Hemodynamically and neurologically intact
Off pressors
[place], A-line out
Resume Lopressor when BP allows
Continue Amio, ASA, Plavix and statin
Encourage incentive spirometer
Impression / Plan
-
PCP: Dr. Marsha Alfredo
Cardiology: Dr. Platt
Impression:
CAD s/p Off Pump CABG x 2 with BOURNE to LAD and SVG to RPDA 09/16/2023
CAD s/p IWMI and RCA PCI in 2014
HTN
DM 2
Active smoker
ICM, EF 45% by echo at [facility] 01/29/23, EF 25% by perfusion imaging 08/14/23, 35-40% by v-gram 08/21/23, 50% by post-op CARLOS 09/16/23
Hyperlipidemia
Hyperglycemia
Neuropathy
Obesity-BMI 34
Echo 01/29/23: [facility] study, EF 45-50%, mod conc LVH, apex, mid and apical anterior septum, apical anterior segment and apical inferior segment are abnormal, aneurysmal anterior apex
Plan:
-Presented to 09/16/2023 for planned Off Pump CABG x 2 with BOURNE to LAD and SVG to RPDA 09/16/2023
-Doing well on POD#1; sitting in bed. Notes some incisional pain with taking deep breaths or moving
-Off all pressors. BP remains low but asymptomatic. Lopressor currently on hold.
-ECG reviewed by me shows SR with mild ST elevation consistent with possible pericarditis changes. Continue to monitor
-Remains in sinus rhythm on tele - continue PO Amiodarone
-Continue ASA and Plavix for graft patency
-EF reportedly reduced by echo at [facility] and then 35-40% by v-gram 08/21/23. EF read at 50% by post-op CARLOS images. Will follow
-Prior to admission patient was taking Coreg 3.125 mg BID. He was not taking an SHUBHAM/ARB/ARNI/aldosterone antagonist. Will try to start prior to d/c if BP allows
-LDL unknown, continue outpatient dose of atorvastatin 40 mg daily
HPI 09/16/2023:
Patient follows with Dr. Platt and had cardiac cath at 08/21/23 after outpatient echo showed newly reduced EF and stress test showed new LAD and RCA territory ischemia. Patient has a h/o IWMI and RCA PCI in 2015. He still smokes as well as being
a diabetic. Patient was found to have multivessel CAD on cath and then saw Dr. Denise in the office as an outpatient where he was recommended CABG. Patient is now seen in CVICU post-op where he remains intubated and sedated. Levophed running at 2.
Progress Note - Stock Dealer
Subjective
Date of Service: September 17, 2023
Patient seen and examined. Patient sitting up in bed. Patient noting some incisional pain which is worse when he tries to move, takes deep breaths.
Objective
Labs:
09/17/23 03:38
Labs
Hgb 9.5 g/dL (13.0-18.0) L 09/17/23 03:38
Hct 28.2 % (39.0-52.0) L 09/17/23 03:38
Plt Count 638 10^3/uL (130-400) H 09/17/23 03:38
PT 16.5 Sec (11.4-14.6) H 09/16/23 16:16
INR 1.35 09/16/23 16:16
APTT 36.6 Sec (23.4-35.0) H 09/16/23 16:16
Sodium 137 mmol/L (135-145) 09/17/23 03:38
Potassium 5.1 mmol/L (3.5-5.1) 09/17/23 03:38
BUN 47 mg/dl (9-20) H 09/17/23 03:38
Creatinine 1.4 mg/dL (0.7-1.3) H 09/17/23 03:38
Glucose 148 mg/dl (70-99) H 09/17/23 03:38
Vital Signs and I&O:
Vital Signs
Temp Pulse Resp BP Pulse Ox
98.4 F 78 20 109/70 91
09/17/23 11:00 09/17/23 11:00 09/17/23 12:00 09/17/23 11:00 09/17/23 11:00
Vital Signs
Temp Pulse Resp BP Pulse Ox
98.4 F 78 20 109/70 91
09/17/23 11:00 09/17/23 11:00 09/17/23 12:00 09/17/23 11:00 09/17/23 11:00
Intake & Output
09/15/23 09/16/23 09/17/23 09/18/23
06:59 06:59 06:59 06:59
Intake Total 2215.2 / 2228.2 711.0 / 711.0
Output Total 855 / 865 420 / 420
Balance 1360.2 / 1363.2 291.0 / 291.0
Physical Exam
Physical Exam
GEN: No distress, awake, Ox3; sitting up in bed
HEENT: supple, anicteric, mmm
LUNGS: Poor inspiratory effort, mild crackles at bases CTA, no wheezes/rales; rub of chest tube noted
CV: Reg, S1/S2, no murmur, gallop;
ABD: soft, BS+, NT/ND
EXT: No edema, clubbing or cyanosis
NEURO: Gross non-focal
SKIN: No rash, warm, pink
[2023-09-17 15:02] LABS: Blood Urea Nitrogen 57 mg/dl (9-20); Calcium 9.2 mg/dl (8.4-10.2); Carbon Dioxide 22 mmol/L (22-30); Chloride 104 mmol/L (98-107); Estimated Creatinine Clearance 47 ml/min; Glucose 102 mg/dl (70-99); Potassium 4.5 mmol/L (3.5-5.1); Sodium 136 mmol/L (135-145); eGFR 42.04
[2023-09-17] MEDS: NSS IV (15:24)
--- NOTE | 2023-09-17 15:52 | PTCARENOTE ---
Vital signs stable. NSR with occasional monomorphic PVCs. HR 80s. BP 116/53. RIJ cordis maintained with KVO. Insulin gtt maintained per critical care glycemic protocol. PIV maintained. RA. Oxygen saturation 90%. CTx3 maintained to -20cm wall
suction. Minimal CT serosanguineous drainage. Nixon maintained per order. OOB into the chair with 1 assist. Patient ambulated in hallway with 2 RNs. Will continue to monitor.
[2023-09-17] MEDS: ROXICODONE 5 MG PO (16:17)
[2023-09-17 16:26] LABS: Glucose - Point of Care 79 mg/dl (70-99)
[2023-09-17 17:43] LABS: Glucose - Point of Care 83 mg/dl (70-99)
[2023-09-17] MEDS: LR 1000 IV (17:45)
[2023-09-17 18:57] LABS: Glucose - Point of Care 102 mg/dl (70-99)
--- NOTE | 2023-09-17 20:00 | PTCARENOTE ---
Assumed care of patient. NSR. VSS. 2L NC. at bedside. Insulin gtt per glycemic protocol. 3 CTs with serosanguinous drainage. Nixon intact. C/o pain, does not want oxycodone - agreeable to flexeril at this time. Assessment per nursing
flowsheet.
[2023-09-17 20:24] LABS: Glucose - Point of Care 222 mg/dl (70-99)
[2023-09-17 21:31] LABS: Glucose - Point of Care 232 mg/dl (70-99)
[2023-09-17 22:27] LABS: Glucose - Point of Care 257 mg/dl (70-99)
--- NOTE | 2023-09-17 22:39 | PTCARENOTE ---
BG 257. Following glycemic protocol for patient. BG is still trending up. Insulin gtt currently @ 10 unit/hr. EHenry aware. Per conversation with pt's hgbA1c >11, BG as hard control. Continuing following protocol.
[2023-09-17 23:24] LABS: Glucose - Point of Care 202 mg/dl (70-99)
[2023-09-18] VITALS (14 sets, daily range): BP systolic 99–148; BP diastolic 51–66; PULSE 86; O2SAT 93; BMI 35.9
--- NOTE | 2023-09-18 00:01 | PTCARENOTE ---
NSR. 4L NC while in bed. VSS. Afebrile. Nixon draining clear yellow, increasing output. Insulin per glycemic protocol. CT with minimal output. Assessment unchanged.
[2023-09-18 00:13] LABS: Glucose - Point of Care 148 mg/dl (70-99)
[2023-09-18 01:22] LABS: Glucose - Point of Care 99 mg/dl (70-99)
[2023-09-18 02:19] LABS: Glucose - Point of Care 77 mg/dl (70-99)
[2023-09-18 03:02] LABS: Glucose - Point of Care 83 mg/dl (70-99)
[2023-09-18 03:54] LABS: Glucose - Point of Care 102 mg/dl (70-99)
[2023-09-18 04:04] LABS: Hemoglobin 8.7 g/dL (13.0-18.0); Mean Corp Hgb Conc. 32.2 g/dL (33.0-37.0); Mean Corpuscular Hgb 29.2 pg (27.0-31.0); Mean Corpuscular Volume 90.6 fL (80.0-94.0); Mean Platelet Volume 11.4 fL (7.4-10.4); Platelet Count 559 10^3/uL (130-400); Red Blood Cell Count 2.98 10^6/uL (4.70-6.10); Red Cell Dist. Width 18.7 % (11.5-14.5)
[2023-09-18 04:35] LABS: Blood Urea Nitrogen 64 mg/dl (9-20); Calcium 8.6 mg/dl (8.4-10.2); Carbon Dioxide 23 mmol/L (22-30); Chloride 106 mmol/L (98-107); Estimated Creatinine Clearance 47 ml/min; Glucose 95 mg/dl (70-99); Magnesium 2.3 mg/dl (1.6-2.3); Potassium 4.7 mmol/L (3.5-5.1); Sodium 133 mmol/L (135-145); eGFR 42.04
--- NOTE | 2023-09-18 04:56 | PTCARENOTE ---
NSR. PVCs. VSS on 4L while sleeping. CT with minimal output. Urine output increasing. Nixon to remain in place until rounds per PA Henry. Insulin per glycemic protocol. Labs obtained. Assessment unchanged.
[2023-09-18 05:05] LABS: Glucose - Point of Care 123 mg/dl (70-99)
[2023-09-18] MEDS: TYLENOL 1000 MG PO ×3 (05:53→22:37)
[2023-09-18 05:58] LABS: Glucose - Point of Care 107 mg/dl (70-99)
--- NOTE | 2023-09-18 06:18 | W.PN.CT ---
Today's Communication / Plan
-
Plan:
-No major issues overnight. Hemodynamically and neurologically intact
-Off all drips
-Cont. current meds (ASA, Plavix, Amiodarone, Lipitor, Lopressor, Lasix)
-Consider d/c of chest tubes: 2meds 70/200, L pleural 50/160
-Monitor cr 1.7, was 1.2 preop; Monitor hyponatremia, 133- likely d/t hypervolemia, consider Lasix, fluid restriction
-WBC down to 17.0 from 30.5 yesterday, likely secondary to stress of surgery, Tm 98.7
-Consider D/C ng catheter after diuresis
-Maintain cordis another day
-No temporary pacer
-Encourage use of IS
-Wean off of O2 as tolerated
-OOB into chair/Ambulate
Assessment / Plan
-
Assessment:
-S/p Off-pump CABG x 2 (in situ BOURNE to LAD, aorta to RSVG to RPDA)/Endoscopic harvest of right lower extremity, by Dr. Denise, 09/16/23, pod#2
-Severe 2V CAD (involving LAD/RCA)
-Hx Inf. [place] S/P PCI with JANNA to prox RCA, 07/11/2014
-ICM (LVEF 35-40% per cath 08/2023), improved to 50% per intraop CARLOS
-HTN
-HLD
-IDT2DM (A1C 11.4)
-Class 2 obesity (BMI 36.5)
-Suspected GABY
-Active tobacco abuse (60 pk/yr)
-Hx hyperkalemia
-Acute postop blood loss/Anemia on chronic anemia (stable without transfusion)
-Acute postop thrombocytosis on chronic thrombocytosis (stable)
-Acute postop leukocytosis (WBC 30.5, Tm 99)
-Acute postop atelectasis/pleural effusion
-Acute postop hypocalcemia
-Acute postop hypovolemia with subsequent hypervolemia
-Acute postop CARLI
-Acute postop EKG changes c/w acute pericarditis (+rub)
Discussed patient care with: Cardiology, Nursing, Respiratory Therapy, Pharmacy and Care Team
Subjective
Procedure
S/p Off-pump CABG x 2 (in situ BOURNE to LAD, aorta to RSVG to RPDA)/Endoscopic harvest of right lower extremity, by Dr. Denise, 09/16/23
-
Date of Service: September 18, 2023
Pt c/o incisional pain, otherwise feels well
Objective Data
-
Lab Results
09/18/23 03:43
09/18/23 03:43
PT 16.5 Sec (11.4-14.6) H 09/16/23 16:16
INR 1.35 09/16/23 16:16
APTT 36.6 Sec (23.4-35.0) H 09/16/23 16:16
Vital Signs
Vital Signs
Temp Pulse Resp BP Pulse Ox
98.4 F 76 18 119/58 97
09/18/23 04:05 09/18/23 04:00 09/18/23 04:05 09/18/23 04:00 09/18/23 04:05
CT Intake/Output/Weight
09/17/23 09/17/23 09/18/23
06:59 18:59 06:59
Intake Total 1692.5 / 2228.2 1236.1 / 2078.1 842.0 / 2078.1
Output Total 720 / 865 630 / 1280 650 / 1280
Balance 972.5 / 1363.2 606.1 / 798.1 192.0 / 798.1
SaO2: 97 (4L)
Physical Exam
-
General: Awake, Oriented and AOx3
Cardiovascular: Regular rate & rhythm, No Murmurs and Rub (likely d/t acute pericarditis)
Respiratory: Clear
Sternum: Stable
Incision: Clean, Dry, Intact and Dressing Intact
Extremities: Other (+trace edema)
Data Reviewed
-
Lab Results: Results Reviewed
Medications: Active Meds Reviewed
Chest X-Ray: Report Reviewed and Image Reviewed
ECG: Report Reviewed and Image Reviewed
[2023-09-18] MEDS: LR 1000 IV (06:34)
[2023-09-18 07:09] LABS: Glucose - Point of Care 100 mg/dl (70-99)
--- NOTE | 2023-09-18 07:11 | W.PN.INTV ---
Today's Communication / Plan
Recommendations
Monitor chest tube output
Consider chest tube removal
Increase activity
Insulin drip
Diabetic nurse practitioner managing blood sugars
Likely will come off insulin drip 2350 at which time converted to telemetry-substance abuse specialist will sign off
Assessment
-
73-year-old male with underlying hypertension, hyperlipidemia, diabetes and CAD underwent CABG and substance abuse specialist consulted for postoperative ventilator/critical care management 09/16/2023.
Assessment
Symptomatic coronary artery disease
Status post CABG x 2-BOURNE-LAD, aorta to RSVG to [facility]--Dr. Denise-09/16/2023
Mild anemia-hemoglobin 12.4-normocytic
Thrombocytosis-platelet count 772
Elevated serum creatinine-CARLI
Hypocalcemia
Leukocytosis
Conditions present prior to admission:
Hypertension.
Hyperlipidemia.
Hyperglycemia.
CAD.
Cigarette smoker
Diabetes.
Neuropathy.
Obesity-BMI 34
Plan
Respiratory status stable postextubation
Wean FiO2
Encourage incentive spirometry
Increase activity
Aspiration precautions
Pulmonary artery catheter and arterial line will be removed
Pressors have been weaned-weaned off norepinephrine
Continue to monitor chest tube output-consideration towards discontinuation today
Follow hemoglobin
Continue to follow platelet count and coags
Transfuse blood product as needed
CT surgery following chest tubes as well
Follow blood sugar
Diabetic nurse practitioner managing sugars
Insulin supplementation continues as needed
Monitor renal function-serum creatinine 1.4-preop 1.2
Monitor leukocytosis, temperature, etc.
Early nutrition
Early mobilization
DVT prophylaxis
Patient will likely come off insulin drip at 2355 and moved to telemetry-substance abuse specialist will sign off at that time-call pulmonary with respiratory issues
Ongoing smoking cessation counseling
Outpatient pulmonary/sleep disorders workup-at risk for GABY
Reviewed the patient's pertinent medical records including radiographs, microbiology, laboratory evaluations, and discussion with primary team and critical care nursing.
Diagnostic data:
CT chest 09/06/2023-no acute disease in the chest
Spirometry 09/10/2023-FEV1 2.7-94%, FVC 3.4-86%. Mild restriction
Echocardiogram 07/11/2014-EF 50-55%, normal diastolic filling pattern, trivial mitral regurgitation, PA systolic 23-28
Cardiac catheterization 08/21/2023-complex calcific two-vessel obstructive coronary disease EF 35-40% with no significant valvular disease
Subjective Dataa
Subjective Data
Date of Service:
Date of Service: September 18, 2023
Chief Complaint: Rush Seater Follow Up, Pulmonary Follow Up and Vent Management Follow Up
Subjective:
Feels much better, out of bed, no complaints of shortness of breath, pain controlled, no abdominal pain
Review of Systems
General: Other
Objective Data
Data Reviewed
Vital Signs / I&O / Oxygen:
Vital Signs
Temp Pulse Resp BP Pulse Ox
98.4 F 80 18 112/60 97
09/18/23 04:05 09/18/23 07:00 09/18/23 04:05 09/18/23 06:00 09/18/23 06:31
Intake and Output
09/17/23 09/18/23 09/19/23
06:59 06:59 06:59
Intake Total 2215.2 / 2228.2 2078.1 / 2078.1
Output Total 855 / 865 1280 / 1280
Balance 1360.2 / 1363.2 798.1 / 798.1
SaO2 [SIMV] 95
SaO2 97
Nasal Cannula flow liters per 4
minute
Physical Exam
General: Respiratory Distress (n) and Comfortable
HEENT: Normocephalic, Anicteric and Moist Mucous Membranes
Cardiovascular: Regular Rhythm
Respiratory: Wheeze (n), Crackles, Rhonchi (n), Non-Labored Respirations, Accessory Resp Muscle Use (n) and Stridor (n)
GI: Soft, Non Distended and Non Tender
Neurology: Awake, Alert and No Motor Deficits
Skin: Warm, Good Color, Cyanosis (n) and Jaundice (n)
Labs/Micro/Reports
Lab Data
09/18/23 03:43
09/18/23 03:43
--- NOTE | 2023-09-18 07:30 | PTCARENOTE ---
Assumed care of patient from night RN. AAO x 3 sitting up in the chair. c/o general discomfort but does not wish to take narcotics at this time. Agreed on Flexeril at present. SR BBB on monitor. 4 L NC 97 %, plan to wean oxygen today. Denies
cough or SOB, IS to 1000, using independently with extra encouragement. Chest tubes x 3 to -20 cm suction. No air leaks or crepitus noted. drainage minimal. Nixon draining clear kim urine, will dc this am. Abdomen round, soft, bowel sounds
present. Appetite good. General plus one anasarca noted. Pulses palpable. Insulin drip remains per glycemic protocol. Plan for day discussed.
--- NOTE | 2023-09-18 07:47 | PN.DE.MGMTRT ---
Insulin Management
- -
09/18/2023 Diabetes Management Follow up
Patient is s/p CABG x 2, POD 2 out of OR 16:30. PMH type 1 diabetes, HTN, hyperkalemia, HLD, hyperglycemia, CAD, neuropathy. A1C on admission 11.4%, CR 1.1, eGFR >60.
Patient is awake alert and oriented, oob in chair full participation in conversation. Patient states he was diagnosed with diabetes ~ 20 years ago, took metformin briefly then was started on insulin. He currently sees Dr. Azul endocrine in
[place]. Discussed his A1C, patient states that Dr. Azul started Tresiba @ HS and SS humalog AC just one month ago. Prior to admission patient was taking NPH 23 units @ HS, Tresiba 70 units @ HS and humalog ss before meals. Patient has
required .2 to 10 units of insulin per hour last 24 hours. Will continue insulin infusion today and transition back to SQ insulin at HS. To receive reduced dose of NPH, 12 units @ HS with Lantus 70 units. Insulin infusion to be off @ 2355.
Novolog 10 units AC to start in AM 3/21 with low corrective insulin. Will check 3AM glucose
Diabetes History
- -
Type of Diabetes: 1
Pre-Admission Diabetes Regimen
09/17/23 09/18/23
14:28 03:43
Creatinine 1.7 H 1.7 H
Insulin Pump Settings
IP Diabetes Regimen
09/17/23 09/17/23 09/17/23
08:12 10:04 10:52
Glucose
POC Glucose 149 H 136 H 124 H
09/17/23 09/17/23 09/17/23
12:38 14:14 14:28
Glucose 102 H
POC Glucose 136 H 121 H
09/17/23 09/17/23 09/17/23
16:25 17:42 18:56
Glucose
POC Glucose 79 83 102 H
09/17/23 09/17/2309/16/24
20:22 21:27 22:22
Glucose
POC Glucose 222 H 232 H 257 H
09/17/23 09/18/23 09/18/23
23:20 00:11 01:21
Glucose
POC Glucose 202 H 148 H 99
09/18/23 09/18/23 09/18/23
02:17 03:01 03:43
Glucose 95
POC Glucose 77 83
09/18/23 09/18/23 09/18/23
03:48 05:02 05:56
Glucose
POC Glucose 102 H 123 H 107 H
09/18/23
07:01
Glucose
POC Glucose 100 H
Meal type: Dinner
Meal type: Lunch
Meal type: Breakfast
Amount consumed: 90%
Amount consumed: Patient refused
Amount consumed: 80%
Patient Education
[2023-09-18] MEDS: SENOKOT-S 1 TABLET PO ×2 (08:19→20:23)
[2023-09-18] MEDS: LIPITOR 40 MG PO (08:20)
[2023-09-18] MEDS: NEURONTIN 100 MG PO ×3 (08:20→22:37)
[2023-09-18] MEDS: BACTROBAN 2% OINTMENT 1 APPLIC NASAL ×2 (08:20→20:23)
[2023-09-18] MEDS: MAGNESIUM OXIDE 500 MG PO ×2 (08:20→20:23)
[2023-09-18] MEDS: PLAVIX 75 MG PO (08:20)
[2023-09-18] MEDS: LOW STRENGTH ASPIRIN 81 MG PO (08:20)
[2023-09-18] MEDS: PACERONE 200 MG PO ×3 (08:20→22:37)
[2023-09-18] MEDS: PROTONIX 40 MG PO (08:20)
[2023-09-18] MEDS: FLEXERIL 5 MG PO (08:20)
[2023-09-18] MEDS: NOVOLOG FLEXPEN 4 UNITS SC ×3 (08:21→17:06)
[2023-09-18 09:07] LABS: Glucose - Point of Care 129 mg/dl (70-99)
[2023-09-18] MEDS: LASIX 40 MG IV (09:07)
--- NOTE | 2023-09-18 09:35 | PTCARENOTE ---
Pt assisted back to bed, 40 mg IV lasix administered per order. Chest tubes x 3 removed, pt tolerated without incident. Nixon cath then removed, pt provided with urinal, will monitor for voiding. Resting in bed.
[2023-09-18 11:24] LABS: Glucose - Point of Care 129 mg/dl (70-99)
--- NOTE | 2023-09-18 11:30 | PTCARENOTE ---
Tolerating the chair w/o complaint. States he feels much better since chest tubes removed this am. 2 L NC 95 %, IS encouraged. VSS. Assessment otherwise unchanged from prior.
--- NOTE | 2023-09-18 11:52 | CM ---
Reviewed chart. Met with Mr. Valdez to review discharge plans. He states he is feeling much better. He states prior to admission he resides with his spouse in a two story home with two steps to enter. He states he has fifteen steps to get to
bedroom/full bathroom. He states he has a powder room on the first floor. He states prior to admission he was independent with ambulation and adls. He states he does not have any DME in the home. He has a Prescription plan. We reviewed a home
visit by the Cardiothoracic Transitional Care Nurse. He is agreeable to a home visit. He states his spouse is retired and she will be home to assist in his care if needed. Medical work-up in progress. The discharge plan is to return home with his
spouse and a home visit by the Cardiothoracic Transitional Care Nurse when medically stable.
[2023-09-18 13:04] LABS: Glucose - Point of Care 146 mg/dl (70-99)
--- NOTE | 2023-09-18 13:21 | PTCARENOTE ---
Resumed care of pt from dayshift RN; pt AAOx3 and resting comfortably in chair; NSR on monitor and VSS; RIJ Cordis and PIV x1 patent; Insulin infusing per Glycemic protocol; Lungs Diminished with crackles; hypoactive bowel sounds; pt voiding clear
yellow urine; +1 generalized edema; weak lower extremity pulses; surgical sites C/D/I.
--- NOTE | 2023-09-18 14:35 | W.PN.CARDCBS ---
Today's Communication / Plan
-
Plan:
-Presented to 09/16/2023 for planned Off Pump CABG x 2 with BOURNE to LAD and SVG to [facility] 09/16/2023
-Doing well on POD#2; sitting in bed. Was OOB to chair yesterday.
-Chest tubes and drains dc'd with significant improvement in his chest discomfort that was most likely consistent with pericarditis/pleuritis
-ECG reviewed by me shows SR with mild ST elevation consistent with possible pericarditis changes. Continue to check EKGs daily
-Remains in sinus rhythm on tele - continue PO Amiodarone
-Continue ASA and Plavix for graft patency
-EF reportedly reduced by echo at [facility] and then 35-40% by v-gram 08/21/23. EF read at 50% by post-op CARLOS images. Will follow
-Prior to admission patient was taking Coreg 3.125 mg BID. He was not taking an SHUBHAM/ARB/ARNI/aldosterone antagonist. Will try to start prior to d/c if BP allows
-LDL unknown, continue outpatient dose of atorvastatin 40 mg daily
-Encourage incentive spirometry
Impression / Plan
-
PCP: Dr. Marsha Alfredo
Cardiology: Dr. Platt
Impression:
CAD s/p Off Pump CABG x 2 with BOURNE to LAD and SVG to [facility] 09/16/2023
CAD s/p IWMI and RCA PCI in 2014
HTN
DM 2
Active smoker
ICM, EF 45% by echo at [facility] 01/29/23, EF 25% by perfusion imaging 08/14/23, 35-40% by v-gram 08/21/23, 50% by post-op CARLOS 09/16/23
Hyperlipidemia
Hyperglycemia
Neuropathy
Obesity-BMI 34
Echo 01/29/23: [facility] study, EF 45-50%, mod conc LVH, apex, mid and apical anterior septum, apical anterior segment and apical inferior segment are abnormal, aneurysmal anterior apex
Plan:
-Presented to 09/16/2023 for planned Off Pump CABG x 2 with BOURNE to LAD and SVG to RPDA 09/16/2023
-Doing well on POD#2; sitting in bed. Was OOB to chair yesterday.
-Chest tubes and drains dc'd with significant improvement in his chest discomfort that was most likely consistent with pericarditis/pleuritis
-ECG reviewed by me shows SR with mild ST elevation consistent with possible pericarditis changes. Continue to check EKGs daily
-Remains in sinus rhythm on tele - continue PO Amiodarone
-Continue ASA and Plavix for graft patency
-EF reportedly reduced by echo at [facility] and then 35-40% by v-gram 08/21/23. EF read at 50% by post-op CARLOS images. Will follow
-Prior to admission patient was taking Coreg 3.125 mg BID. He was not taking an SHUBHAM/ARB/ARNI/aldosterone antagonist. Will try to start prior to d/c if BP allows
-LDL unknown, continue outpatient dose of atorvastatin 40 mg daily
-Encourage incentive spirometry
HPI 09/16/2023:
Patient follows with Dr. Platt and had cardiac cath at 08/21/23 after outpatient echo showed newly reduced EF and stress test showed new LAD and RCA territory ischemia. Patient has a h/o IWMI and RCA PCI in 2014. He still smokes as well as being
a diabetic. Patient was found to have multivessel CAD on cath and then saw Dr. Denise in the office as an outpatient where he was recommended CABG. Patient is now seen in CVICU post-op where he remains intubated and sedated. Levophed running at 2.
Progress Note - Duco Polisher
Subjective
Date of Service: September 18, 2023
Objective
Labs:
09/18/23 03:43
09/18/23 03:43
Labs
Hgb 8.7 g/dL (13.0-18.0) L 09/18/23 03:43
Hct 27.0 % (39.0-52.0) L 09/18/23 03:43
Plt Count 559 10^3/uL (130-400) H 09/18/23 03:43
PT 16.5 Sec (11.4-14.6) H 09/16/23 16:16
INR 1.35 09/16/23 16:16
APTT 36.6 Sec (23.4-35.0) H 09/16/23 16:16
Sodium 133 mmol/L (135-145) L 09/18/23 03:43
Potassium 4.7 mmol/L (3.5-5.1) 09/18/23 03:43
BUN 64 mg/dl (9-20) H 09/18/23 03:43
Creatinine 1.7 mg/dL (0.7-1.3) H 09/18/23 03:43
Glucose 95 mg/dl (70-99) 09/18/23 03:43
Vital Signs and I&O:
Vital Signs
Temp Pulse Resp BP Pulse Ox
98.9 F 87 18 115/56 95
09/18/23 11:24 09/18/23 13:00 09/18/23 11:24 09/18/23 10:46 09/18/23 11:24
Vital Signs
Temp Pulse Resp BP Pulse Ox
98.9 F 87 18 115/56 95
09/18/23 11:24 09/18/23 13:00 09/18/23 11:24 09/18/23 10:46 09/18/23 11:24
Intake & Output
09/16/23 09/17/23 09/18/23 09/19/23
06:59 06:59 06:59 06:59
Intake Total 2215.2 / 2228.2 2078.1 / 2078.1 747.5 / 747.5
Output Total 855 / 865 1280 / 1280 1130 / 1130
Balance 1360.2 / 1363.2 798.1 / 798.1 -382.5 / -382.5
Physical Exam
Physical Exam
GEN: No distress, awake, Ox3; sitting up in bed
HEENT: supple, anicteric, mmm
LUNGS: Poor inspiratory effort, mild crackles at bases CTA, no wheezes/rales
CV: Reg, S1/S2, no murmur, gallop;
ABD: soft, BS+, NT/ND
EXT: No edema, clubbing or cyanosis
NEURO: Gross non-focal
SKIN: No rash, warm, pink
[2023-09-18] MEDS: NSS 500 IV (14:50)
[2023-09-18 15:07] LABS: Glucose - Point of Care 147 mg/dl (70-99)
[2023-09-18 17:03] LABS: Glucose - Point of Care 174 mg/dl (70-99)
--- NOTE | 2023-09-18 17:25 | PTCARENOTE ---
NSR on monitor and VSS; assessment unchanged; family at bedside.
[2023-09-18 18:02] LABS: Glucose - Point of Care 179 mg/dl (70-99)
[2023-09-18 19:24] LABS: Glucose - Point of Care 182 mg/dl (70-99)
--- NOTE | 2023-09-18 19:56 | PTCARENOTE ---
NSR. VSS. 2L NC. OOB to chair. One assist back to bed. at bedside. Insulin gtt per glycemic protocol until midnight. Denies pain. Assessment per nursing flowsheet.
[2023-09-18 20:25] LABS: Glucose - Point of Care 142 mg/dl (70-99)
[2023-09-18 21:18] LABS: Glucose - Point of Care 119 mg/dl (70-99)
--- NOTE | 2023-09-18 22:32 | PTCARENOTE ---
Dat Paul aware of most recent BG 105. Pt remains on glycemic protocol - insulin gtt. Pt due for 70 units lantus SQ, 12 units NPH SQ. Per conversation administer lantus, pt offered a snack. Recheck BG at 0000 to reassess for NPH.
[2023-09-18 22:36] LABS: Glucose - Point of Care 105 mg/dl (70-99)
[2023-09-18] MEDS: LANTUS 0.699999999999999956 UNITS SC (22:38)
[2023-09-18 23:58] LABS: Glucose - Point of Care 128 mg/dl (70-99)
[2023-09-19] VITALS (11 sets, daily range): BP systolic 107–141; BP diastolic 45–83; PULSE 72; O2SAT 94–95; BMI 36.0
--- NOTE | 2023-09-19 00:21 | PTCARENOTE ---
NSR. VSS on 2L NC. Insulin gtt d/gina. BG 128. Hold SQ NPH per Dat JOHNSON. Pt turned and repositioned - c/o 'gluteal muscle pain.' Assessment unchanged.
[2023-09-19 03:15] LABS: Glucose - Point of Care 203 mg/dl (70-99)
[2023-09-19 03:23] LABS: Hematocrit 25.7 % (39.0-52.0); Hemoglobin 8.8 g/dL (13.0-18.0); Mean Corp Hgb Conc. 34.2 g/dL (33.0-37.0); Mean Corpuscular Volume 87.7 fL (80.0-94.0); Platelet Count 595 10^3/uL (130-400); Red Blood Cell Count 2.93 10^6/uL (4.70-6.10); Red Cell Dist. Width 18.8 % (11.5-14.5); White Blood Cell Count 16.1 10^3/uL (4.8-10.8)
[2023-09-19 03:52] LABS: Blood Urea Nitrogen 62 mg/dl (9-20); Calcium 8.7 mg/dl (8.4-10.2); Carbon Dioxide 25 mmol/L (22-30); Chloride 101 mmol/L (98-107); Estimated Creatinine Clearance 67 ml/min; Glucose 202 mg/dl (70-99); Magnesium 2.4 mg/dl (1.6-2.3); Sodium 133 mmol/L (135-145); eGFR > 60.00
[2023-09-19] MEDS: NOVOLOG FLEXPEN 1 UNITS SC (03:52)
--- NOTE | 2023-09-19 03:57 | PTCARENOTE ---
BG 203. 1 unit SQ novolog administered. VSS. NSR. Pt resting comfortably.
--- NOTE | 2023-09-19 04:16 | W.PN.CT ---
Today's Communication / Plan
-
-pod #3
-no issues overnight
-diuresed with 40 iv Lasix on 09/17 (UO 1100)
-consider Lasix today
-Cr improved - 1.2 today (1.7 on 09/17 and 09/16 and 1.2 preop)
-follow Na - 133 today (133 on 09/17), on fluid restriction
-resumed Lopressor (was held for low BP - SBP 120s-140s now, no bradycardia)
-current meds (ASA, Plavix, Amio, Lipitor, Lopressor, Lasix, Protonix, Hydroxurea for thrombocytosis, Lantus/Novolog)
-insulin dcd at midnight - appreciate DM input
-encourage IS, OOB, ambulate
-appreciate everyone's input
Assessment / Plan
-
Assessment:
-S/p Off-pump CABG x 2 (in situ BOURNE to LAD, aorta to RSVG to RPDA)/Endoscopic harvest of right lower extremity, by Dr. Denise, 09/16/23, pod#3
-Severe 2V CAD (involving LAD/RCA)
-Hx Inf. [place] S/P PCI with JANNA to prox RCA, 07/11/2014
-ICM (LVEF 35-40% per cath 08/2023), improved to 50% per intraop CARLOS
-HTN
-HLD
-IDT2DM (A1C 11.4)
-Class 2 obesity (BMI 36.5)
-Suspected GABY
-Active tobacco abuse (60 pk/yr)
-Hx hyperkalemia
-Acute postop blood loss/Anemia on chronic anemia (stable without transfusion)
-Acute postop thrombocytosis on chronic thrombocytosis (stable)
-Acute postop leukocytosis (WBC 30.5, Tm 99)
-Acute postop atelectasis/pleural effusion
-Acute postop hypocalcemia
-Acute postop hypovolemia with subsequent hypervolemia
-Acute postop CARLI
-Acute postop EKG changes c/w acute pericarditis (+rub)
Discussed patient care with: Nursing and Care Team
Subjective
Procedure
S/p Off-pump CABG x 2 (in situ BOURNE to LAD, aorta to RSVG to RPDA)/Endoscopic harvest of right lower extremity, by Dr. Denise, 09/16/23
-
Date of Service: September 19, 2023
Objective Data
-
Lab Results
09/19/23 03:10
09/19/23 03:10
PT 16.5 Sec (11.4-14.6) H 09/16/23 16:16
INR 1.35 09/16/23 16:16
APTT 36.6 Sec (23.4-35.0) H 09/16/23 16:16
Vital Signs
Vital Signs
Temp Pulse Resp BP Pulse Ox
98.2 F 76 18 136/65 95
09/19/23 03:21 09/19/23 03:17 09/19/23 03:21 09/19/23 03:17 09/19/23 03:21
CT Intake/Output/Weight
09/18/23 09/18/23 09/19/23
06:59 18:59 06:59
Intake Total 842.0 / 2078.1 765.5 / 1104.5 339 / 1104.5
Output Total 650 / 1280 1130 / 1130
Balance 192.0 / 798.1 -364.5 / -25.5 339 / -25.5
SaO2: 95
Physical Exam
-
General: Awake and AOx3
Cardiovascular: Regular rate & rhythm, No Murmurs and No Rub
Respiratory: Rales (at bases b/l) and Decreased Breath Sounds
Sternum: Stable
Incision: Clean, Dry and Dressing Intact
Extremities: Edema +1
Abdomen: soft, mildly distended, nontender, + decreased bowel sounds, + flatus
Data Reviewed
-
Lab Results: Results Reviewed
Medications: Active Meds Reviewed
Chest X-Ray: Report Reviewed and Image Reviewed
ECG: Report Reviewed and Image Reviewed
[2023-09-19] MEDS: TYLENOL 1000 MG PO ×3 (06:28→21:45)
[2023-09-19 07:01] LABS: Glucose - Point of Care 273 mg/dl (70-99)
[2023-09-19] MEDS: LOW STRENGTH ASPIRIN 81 MG PO (07:28)
[2023-09-19] MEDS: PROTONIX 40 MG PO (07:29)
[2023-09-19] MEDS: SENOKOT-S 1 TABLET PO ×2 (07:29→19:37)
[2023-09-19] MEDS: LOPRESSOR 12.5 MG PO ×2 (07:29→19:37)
[2023-09-19] MEDS: LIPITOR 40 MG PO (07:29)
[2023-09-19] MEDS: HYDREA 1000 MG PO (07:29)
[2023-09-19] MEDS: PLAVIX 75 MG PO (07:29)
[2023-09-19] MEDS: NEURONTIN 100 MG PO ×3 (07:29→21:46)
[2023-09-19] MEDS: BACTROBAN 2% OINTMENT 1 APPLIC NASAL ×2 (07:30→19:37)
[2023-09-19] MEDS: PACERONE 200 MG PO ×3 (07:30→21:46)
--- NOTE | 2023-09-19 07:36 | W.PN.INTV ---
Today's Communication / Plan
Recommendations
Insulin supplementation as needed
Insulin drip will be discontinued
Ongoing smoking cessation counseling
Outpatient pulmonary/sleep disorders follow-up
Transfer to telemetry-gaming worker will sign off-please call if pulmonary issues arise
Assessment
-
73-year-old male with underlying hypertension, hyperlipidemia, diabetes and CAD underwent CABG and gaming worker consulted for postoperative ventilator/critical care management 09/16/2023.
Assessment
Symptomatic coronary artery disease
Status post CABG x 2-BOURNE-LAD, aorta to RSVG to [facility]--Dr. Denise-09/16/2023
Mild anemia-hemoglobin 12.4-normocytic
Thrombocytosis-platelet count 772
Elevated serum creatinine-CARLI
Hypocalcemia
Leukocytosis
Conditions present prior to admission:
Hypertension.
Hyperlipidemia.
Hyperglycemia.
CAD.
Cigarette smoker
Diabetes.
Neuropathy.
Obesity-BMI 34
Plan
Pulmonary status stable post extubation
Continue attempts at weaning FiO2
Incentive spirometry encouraged
Increase activity/out of bed
Aspiration precautions
Chest tubes removed
Monitor blood sugar
Diabetic nurse practitioner managing sugars
Insulin supplementation continues as needed-insulin drip will be discontinued
Monitor renal function-serum creatinine 1.4-preop 1.2-now back to 1.2 on 09/19/2023
Follow leukocytosis, temperature, etc.
Diabetic diet
Increase activity
DVT prophylaxis
Insulin drip has been discontinued-will be transferred to telemetry-gaming worker will sign off-call pulmonary with respiratory issues
Ongoing smoking cessation counseling provided-states quit smoking 2 weeks ago
Outpatient pulmonary/sleep disorders workup-at risk for GABY
Reviewed the patient's pertinent medical records including radiographs, microbiology, laboratory evaluations, and discussion with primary team and critical care nursing.
Diagnostic data:
CT chest 09/06/2023-no acute disease in the chest
Spirometry 09/10/2023-FEV1 2.7-94%, FVC 3.4-86%. Mild restriction
Echocardiogram 07/11/2014-EF 50-55%, normal diastolic filling pattern, trivial mitral regurgitation, PA systolic 23-28
Cardiac catheterization 08/21/2023-complex calcific two-vessel obstructive coronary disease EF 35-40% with no significant valvular disease
Subjective Dataa
Subjective Data
Date of Service:
Date of Service: September 19, 2023
Chief Complaint: Bolt Sawyer Follow Up, Pulmonary Follow Up and Vent Management Follow Up
Subjective:
Out of bed, feels better, some shortness of breath and difficulties taking a deep breath, chest tubes out, no abdominal pain.
Review of Systems
General: Other (Per HPI)
Objective Data
Data Reviewed
Vital Signs / I&O / Oxygen:
Vital Signs
Temp Pulse Resp BP Pulse Ox
98.2 F 77 18 120/45 95
09/19/23 03:21 09/19/23 07:29 09/19/23 03:21 09/19/23 07:29 09/19/23 04:21
Intake and Output
09/18/23 09/19/23 09/20/23
06:59 06:59 06:59
Intake Total 2078.1 / 2078.1 1154.5 / 1154.5
Output Total 1280 / 1280 1680 / 1680
Balance 798.1 / 798.1 -525.5 / -525.5
SaO2 [SIMV] 95
SaO2 95
Nasal Cannula flow liters per 2
minute
Physical Exam
General: Respiratory Distress (n) and Comfortable
HEENT: Normocephalic, Anicteric and Moist Mucous Membranes
Cardiovascular: Regular Rhythm
Respiratory: Wheeze (n), Crackles, Rhonchi (n), Non-Labored Respirations, Accessory Resp Muscle Use (n) and Stridor (n)
GI: Soft, Non Distended and Non Tender
Neurology: Awake, Alert and No Motor Deficits
Skin: Warm, Good Color, Cyanosis (n) and Jaundice (n)
Labs/Micro/Reports
Lab Data
09/19/23 03:10
09/19/23 03:10
[2023-09-19] MEDS: NOVOLOG FLEXPEN-LOW RESISTANCE 3 UNITS SC ×3 (07:45→18:33)
[2023-09-19] MEDS: NOVOLOG FLEXPEN 10 UNITS SC (07:45)
--- NOTE | 2023-09-19 08:25 | PTCARENOTE ---
Received pt from career coordinator RN; pt AAOx3 and resting comfortably in chair; NSR BBB on monitor and VSS: RIJ Cordis and PIV x1 all patent; Lungs diminished with crackles at bases; IS to 1000; hypoactive bowel sounds; pt voiding clear yellow urine;
palpable pulses throughout; +1 generalized edema; surgical sites C/D/I; see nursing documentation for further details.
--- NOTE | 2023-09-19 08:48 | PN.DE.MGMTRT ---
Insulin Management
- -
09/19/2023 Diabetes Management Follow up
Patient is s/p CABG x 2, POD 3 out of OR 16:30 on 09/15. PMH type 1 diabetes, HTN, hyperkalemia, HLD, hyperglycemia, CAD, neuropathy. A1C on admission 11.4%, CR 1.1, eGFR >60.
Patient was diagnosed with diabetes ~ 20 years ago, took metformin briefly then was started on insulin. He currently sees Dr. Azul endocrine in [place]. Discussed his A1C, patient states that Dr. Azul started Tresiba @ HS and SS humalog
AC just one month ago. Prior to admission patient was taking NPH 23 units @ HS, Tresiba 70 units @ HS and humalog ss before meals.
Patient is awake alert and oriented, oob in chair full participation in conversation.
HS NPH was held last evening. Patient did receive Lantus 70 units. 3AM glucose 203, fasting this AM 273. Will resume NPH at 18 units tonight and check 3AM glucose. Discussed with patient, first night he is home to take reduced dose of NPH, if
glucose is above 150 to resume 23 units NPH @ HS.
Diabetes History
- -
Type of Diabetes: 1
Pre-Admission Diabetes Regimen
09/19/23
03:10
Creatinine 1.2
Insulin Pump Settings
IP Diabetes Regimen
09/18/23 09/18/23 09/18/23
09:06 11:23 13:03
Glucose
POC Glucose 129 H 129 H 146 H
09/18/23 09/18/23 09/18/23
15:05 16:57 18:00
Glucose
POC Glucose 147 H 174 H 179 H
09/18/23 09/18/23 09/18/23
19:13 20:19 21:17
Glucose
POC Glucose 182 H 142 H 119 H
09/18/23 09/18/23 09/19/23
22:35 23:56 03:10
Glucose 202 H
POC Glucose 105 H 128 H
09/19/23 09/19/23
03:13 06:59
Glucose
POC Glucose 203 H 273 H
Meal type: Dinner
Meal type: Breakfast
Amount consumed: 100%
Amount consumed: 100%
Patient Education
[2023-09-19] MEDS: MAGNESIUM OXIDE 500 MG PO ×2 (08:55→19:37)
[2023-09-19] MEDS: LASIX 40 MG IV (08:55)
--- NOTE | 2023-09-19 09:15 | W.PN.CARDCBS ---
Today's Communication / Plan
-
Plan:
-Presented to 09/16/2023 for planned Off Pump CABG x 2 with BOURNE to LAD and SVG to RPDA 09/16/2023
-Doing well on POD#3; sitting in bed. Was OOB to chair yesterday. Plan for further diuresis today.
-Chest tubes and drains dc'd with significant improvement in his chest discomfort that was most likely consistent with pericarditis/pleuritis
-ECG reviewed by me shows SR with improved ST changes.
-Remains in sinus rhythm on tele - continue PO Amiodarone
-Continue ASA and Plavix for graft patency
-EF reportedly reduced by echo at [facility] and then 35-40% by v-gram 08/21/23. EF read at 50% by post-op CARLOS images. Will follow
-Prior to admission patient was taking Coreg 3.125 mg BID. He was not taking an SHUBHAM/ARB/ARNI/aldosterone antagonist. Will try to start prior to d/c if BP allows
-LDL unknown, continue outpatient dose of atorvastatin 40 mg daily
-Encourage incentive spirometry
Impression / Plan
-
PCP: Dr. Marsha Alfredo
Cardiology: Dr. Platt
Impression:
CAD s/p Off Pump CABG x 2 with BOURNE to LAD and SVG to [facility] 09/16/2023
CAD s/p IWMI and RCA PCI in 2014
HTN
DM 2
Active smoker
ICM, EF 45% by echo at [facility] 01/29/23, EF 25% by perfusion imaging 08/14/23, 35-40% by v-gram 08/21/23, 50% by post-op CARLOS 09/16/23
Hyperlipidemia
Hyperglycemia
Neuropathy
Obesity-BMI 34
Echo 01/29/23: [facility] study, EF 45-50%, mod conc LVH, apex, mid and apical anterior septum, apical anterior segment and apical inferior segment are abnormal, aneurysmal anterior apex
Plan:
-Presented to 09/16/2023 for planned Off Pump CABG x 2 with BOURNE to LAD and SVG to RPDA 09/16/2023
-Doing well on POD#3; sitting in bed. Was OOB to chair yesterday. Plan for further diuresis today.
-Chest tubes and drains dc'd with significant improvement in his chest discomfort that was most likely consistent with pericarditis/pleuritis
-ECG reviewed by me shows SR with improved ST changes.
-Remains in sinus rhythm on tele - continue PO Amiodarone
-Continue ASA and Plavix for graft patency
-EF reportedly reduced by echo at [facility] and then 35-40% by v-gram 08/21/23. EF read at 50% by post-op CARLOS images. Will follow
-Prior to admission patient was taking Coreg 3.125 mg BID. He was not taking an SHUBHAM/ARB/ARNI/aldosterone antagonist. Will try to start prior to d/c if BP allows
-LDL unknown, continue outpatient dose of atorvastatin 40 mg daily
-Encourage incentive spirometry
HPI 09/16/2023:
Patient follows with Dr. Platt and had cardiac cath at 08/21/23 after outpatient echo showed newly reduced EF and stress test showed new LAD and RCA territory ischemia. Patient has a h/o IWMI and RCA PCI in 2014. He still smokes as well as being
a diabetic. Patient was found to have multivessel CAD on cath and then saw Dr. Denise in the office as an outpatient where he was recommended CABG. Patient is now seen in CVICU post-op where he remains intubated and sedated. Levophed running at 2.
Progress Note - Reinforcing [employer] Workers
Subjective
Date of Service: September 19, 2023
No major complaints
Objective
Labs:
09/19/23 03:10
09/19/23 03:10
Labs
Hgb 8.8 g/dL (13.0-18.0) L 09/19/23 03:10
Hct 25.7 % (39.0-52.0) L 09/19/23 03:10
Plt Count 595 10^3/uL (130-400) H 09/19/23 03:10
PT 16.5 Sec (11.4-14.6) H 09/16/23 16:16
INR 1.35 09/16/23 16:16
APTT 36.6 Sec (23.4-35.0) H 09/16/23 16:16
Sodium 133 mmol/L (135-145) L 09/19/23 03:10
Potassium 5.0 mmol/L (3.5-5.1) 09/19/23 03:10
BUN 62 mg/dl (9-20) H 09/19/23 03:10
Creatinine 1.2 mg/dL (0.7-1.3) 09/19/23 03:10
Glucose 202 mg/dl (70-99) H 09/19/23 03:10
Vital Signs and I&O:
Vital Signs
Temp Pulse Resp BP Pulse Ox
98.8 F 70 20 110/57 95
09/19/23 08:00 09/19/23 09:00 09/19/23 08:00 09/19/23 08:56 09/19/23 08:00
Vital Signs
Temp Pulse Resp BP Pulse Ox
98.8 F 70 20 110/57 95
09/19/23 08:00 09/19/23 09:00 09/19/23 08:00 09/19/23 08:56 09/19/23 08:00
Intake & Output
09/17/23 09/18/23 09/19/23 09/20/23
06:59 06:59 06:59 06:59
Intake Total 2215.2 / 2228.2 2078.1 / 2078.1 1154.5 / 1154.5 40 / 40
Output Total 855 / 865 1280 / 1280 1680 / 1680 400 / 400
Balance 1360.2 / 1363.2 798.1 / 798.1 -525.5 / -525.5 -360 / -360
Physical Exam
Physical Exam
GEN: No distress, awake, Ox3; sitting up in bed
HEENT: supple, anicteric, mmm
LUNGS: Poor inspiratory effort, mild crackles at bases CTA, no wheezes/rales
CV: Reg, S1/S2, no murmur, gallop;
ABD: soft, BS+, NT/ND
EXT: No edema, clubbing or cyanosis
NEURO: Gross non-focal
SKIN: No rash, warm, pink
[2023-09-19 11:21] LABS: Glucose - Point of Care 300 mg/dl (70-99)
--- NOTE | 2023-09-19 11:45 | PTCARENOTE ---
Assessment unchanged; NSR BBB on monitor and VSS; lunch time blood sugar 300, updated P. [place] CHECK OUT CASHIER orders being changed by REGIONAL SALES LEADER.
[2023-09-19] MEDS: NOVOLOG FLEXPEN SC (12:26)
[2023-09-19 13:39] LABS: Glucose - Point of Care 285 mg/dl (70-99)
[2023-09-19] MEDS: NOVOLOG FLEXPEN 18 UNITS SC ×2 (13:40→18:33)
[2023-09-19] MEDS: NSS IV (14:17)
[2023-09-19 16:36] LABS: Glucose - Point of Care 293 mg/dl (70-99)
--- NOTE | 2023-09-19 16:44 | PTCARENOTE ---
NSR BBB on monitor and VSS; assessment unchanged; family at bedside.
[2023-09-19 18:35] LABS: Glucose - Point of Care 283 mg/dl (70-99)
--- NOTE | 2023-09-19 19:45 | PTCARENOTE ---
assumed care of pt from previous from RN. pt A&Ox4, resting in chair at time of assessment. pt ambulated 300' w/ RN without issue. SR on tele-monitor, HR 70-80s. palpable peripheral pulses. generalized edema. POX 94% on RA. abd s/n, +BS. pt voids in
urinal. all surgical sites stable. R IJ cordis w/ KVO. PIV intact. see worklist for complete nursing assessment, interventions, VS, and I&Os.
[2023-09-19 21:46] LABS: Glucose - Point of Care 278 mg/dl (70-99)
[2023-09-19] MEDS: LANTUS 0.699999999999999956 UNITS SC (21:46)
[2023-09-19] MEDS: HUMULIN N KWIKPEN 18 UNITS SC (21:49)
[2023-09-20] VITALS (7 sets, daily range): BP systolic 109–128; BP diastolic 60–70; PULSE 87; O2SAT 92–94; BMI 35.7
[2023-09-20] MEDS: FLEXERIL 5 MG PO (00:26)
--- NOTE | 2023-09-20 00:30 | PTCARENOTE ---
assessment remains unchanged. VSS. SR on tele-monitor, HR 70s. POX 89% on RA. pt placed on 1 L NC, POX 93%. pain management, see MAR.
[2023-09-20 03:08] LABS: Glucose - Point of Care 225 mg/dl (70-99)
--- NOTE | 2023-09-20 04:15 | W.PN.CT ---
Documented by User: Love Torres PA-C 09/20/23 04:15
Today's Communication / Plan
-
-pod #4
-no issues overnight
-diuresed with 40 iv Lasix on 09/18 (UO 1400)
-follow Cr/Na (pending)
-follow blood glucose
-follow 2v-CXR
-current meds (ASA, Plavix, Amio, Lipitor, Lopressor, Lasix, Protonix, Hydroxurea for thrombocytosis, Lantus/NPH/Novolog)
-appreciate everyone's input
-likely d/c soon
Assessment / Plan
-
Assessment:
-S/p Off-pump CABG x 2 (in situ BOURNE to LAD, aorta to RSVG to RPDA)/Endoscopic harvest of right lower extremity, by Dr. Denise, 09/16/23, pod#4
-Severe 2V CAD (involving LAD/RCA)
-Hx Inf. [place] S/P PCI with JANNA to prox RCA, 07/11/2014
-ICM (LVEF 35-40% per cath 08/2023), improved to 50% per intraop CARLOS
-HTN
-HLD
-IDT2DM (A1C 11.4)
-Class 2 obesity (BMI 36.5)
-Suspected GABY
-Active tobacco abuse (60 pk/yr)
-Hx hyperkalemia
-Acute postop blood loss/Anemia on chronic anemia (stable without transfusion)
-Acute postop thrombocytosis on chronic thrombocytosis (stable)
-Acute postop leukocytosis (WBC 30.5, Tm 99)
-Acute postop atelectasis/pleural effusion
-Acute postop hypocalcemia/ hyponatremia
-Acute postop hypovolemia with subsequent hypervolemia
-Acute postop CARLI
-Acute postop EKG changes c/w acute pericarditis (+rub)
Discussed patient care with: Nursing and Care Team
Subjective
Procedure
S/p Off-pump CABG x 2 (in situ BOURNE to LAD, aorta to RSVG to RPDA)/Endoscopic harvest of right lower extremity, by Dr. Denise, 09/16/23
-
Date of Service: September 20, 2023
Objective Data
-
PT 16.5 Sec (11.4-14.6) H 09/16/23 16:16
INR 1.35 09/16/23 16:16
APTT 36.6 Sec (23.4-35.0) H 09/16/23 16:16
Vital Signs
Vital Signs
Temp Pulse Resp BP Pulse Ox
99.2 F 69 18 122/60 89
09/20/23 00:00 09/20/23 02:00 09/20/23 00:00 09/20/23 00:19 09/20/23 00:19
CT Intake/Output/Weight
09/19/23 09/19/23 09/20/23
06:59 18:59 06:59
Intake Total 389 / 1154.5 40 / 120 80 / 120
Output Total 550 / 1680 1399 / 1974 57 / 1974
Balance -161 / -525.5 -1360 / -1855 -495 / -1855
SaO2: 89
Physical Exam
-
General: Awake and AOx3
Cardiovascular: Regular rate & rhythm, No Murmurs and No Rub
Respiratory: Clear and Decreased Breath Sounds
Sternum: Stable
Incision: Clean, Dry and Intact
Extremities: Edema +1
Abdomen: soft, nontender, + bowel sounds, nondistended
Data Reviewed
-
Lab Results: Results Reviewed
Medications: Active Meds Reviewed
Chest X-Ray: Report Reviewed and Image Reviewed
ECG: Report Reviewed and Image Reviewed

Documented by User: Bouchra [email or web address] [email or web address] 09/20/23 15:14
Assessment / Plan
-
Assessment:
-S/p Off-pump CABG x 2 (in situ BOURNE to LAD, aorta to RSVG to RPDA)/Endoscopic harvest of right lower extremity, by Dr. Denise, 09/16/23, pod#4
-Severe 2V CAD (involving LAD/RCA)
-Hx Inf. [place] S/P PCI with JANNA to prox RCA, 07/11/2014
-ICM (LVEF 35-40% per cath 08/2023), improved to 50% per intraop CARLOS
-HTN
-HLD
-IDT2DM (A1C 11.4)
-Class 2 obesity (BMI 36.5)
-Suspected GABY
-Active tobacco abuse (60 pk/yr)
-Hx hyperkalemia
-Acute postop blood loss/Anemia on chronic anemia (stable without transfusion)
-Acute postop thrombocytosis on chronic thrombocytosis (stable)
-Acute postop leukocytosis (WBC 30.5, Tm 99)
-Acute postop atelectasis/pleural effusion
-Acute postop hypocalcemia/ hyponatremia
-Chronic HFrEF; post op hypervolemia only
-Acute postop CARLI
-Acute postop EKG changes c/w acute pericarditis (+rub)
--- NOTE | 2023-09-20 04:30 | PTCARENOTE ---
pt reassessed. VSS. SR on tele-monitor, HR 60s-70s. POX 94% on 1 L NC. AM labs collected sent.
[2023-09-20 04:57] LABS: Hematocrit 25.9 % (39.0-52.0); Hemoglobin 8.6 g/dL (13.0-18.0); Mean Corp Hgb Conc. 33.2 g/dL (33.0-37.0); Mean Corpuscular Hgb 29.5 pg (27.0-31.0); Mean Corpuscular Volume 88.7 fL (80.0-94.0); Mean Platelet Volume 11.4 fL (7.4-10.4); Platelet Count 625 10^3/uL (130-400); Red Blood Cell Count 2.92 10^6/uL (4.70-6.10); Red Cell Dist. Width 18.6 % (11.5-14.5); White Blood Cell Count 13.7 10^3/uL (4.8-10.8)
[2023-09-20 05:21] LABS: Blood Urea Nitrogen 50 mg/dl (9-20); Calcium 8.5 mg/dl (8.4-10.2); Carbon Dioxide 28 mmol/L (22-30); Chloride 104 mmol/L (98-107); Estimated Creatinine Clearance 73 ml/min; Glucose 182 mg/dl (70-99); Magnesium 2.5 mg/dl (1.6-2.3); Potassium 4.8 mmol/L (3.5-5.1); Sodium 134 mmol/L (135-145); eGFR > 60.00
[2023-09-20] MEDS: TYLENOL 1000 MG PO (06:38)
[2023-09-20 07:41] LABS: Glucose - Point of Care 162 mg/dl (70-99)
--- NOTE | 2023-09-20 07:48 | PN.DE.MGMTRT ---
Insulin Management
- -
09/20/2023: Diabetes Management F/U:
73 year old male admitted for elective CABG. Now POD#4 s/p CABG x 2
PMH includes: HTN, HLD, CAD, Neuropathy and T1DM x20 yrs. A1C on admission 11.4%, CR 1.1, eGFR >60.
Pt dx w/ diabetes ~ 20 years ago, took metformin briefly then was started on insulin.
He currently sees Endocrine Dr. Azul in [place]. Pt states that Dr. Azul started Tresiba @ HS and SS Humalog AC just one month ago.
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
Pt awake A/O x3, OOB in chair, able to participate in discussion re: Diabetes regimen. States he is anxious about going home today.
Received HS NPH 18 units and Lantus 70 units. 3AM glucose 225, fasting this AM 187.
Will increase NPH to 20 units check 3AM glucose. Cont Lantus 70 units @ HS and NovoLog 18 units AC
Discussed with patient, first night he is home to take reduced dose of NPH 20 units and if his glucose is above 150 to resume 23 units NPH @ HS.
Pt verbalized understanding. Updated pt's Nurse
Diabetes History
- -
Type of Diabetes: 2 requiring insulin
Pre-Admission Diabetes Regimen
09/20/23
04:38
Creatinine 1.1
Insulin Pump Settings
IP Diabetes Regimen
09/19/23 09/19/23 09/19/23
11:19 13:38 16:32
Glucose
POC Glucose 300 H 285 H 293 H
09/19/23 09/19/23 09/20/23
18:32 21:45 03:07
Glucose
POC Glucose 283 H 278 H 225 H
09/20/23 09/20/23
04:38 07:38
Glucose 182 H
POC Glucose 162 H
Meal type: Dinner
Meal type: Breakfast
Amount consumed: 100%
Amount consumed: 100%
Amount consumed: 100%
Patient Education
[2023-09-20] MEDS: NOVOLOG FLEXPEN 18 UNITS SC (08:21)
[2023-09-20] MEDS: LASIX 20 MG IV (08:21)
[2023-09-20] MEDS: NOVOLOG FLEXPEN-LOW RESISTANCE 1 UNITS SC (08:21)
[2023-09-20] MEDS: NEURONTIN 100 MG PO (08:22)
[2023-09-20] MEDS: MAGNESIUM OXIDE 500 MG PO (08:22)
[2023-09-20] MEDS: LOPRESSOR 12.5 MG PO (08:22)
[2023-09-20] MEDS: PACERONE 200 MG PO (08:22)
[2023-09-20] MEDS: PROTONIX 40 MG PO (08:22)
[2023-09-20] MEDS: SENOKOT-S 1 TABLET PO (08:22)
[2023-09-20] MEDS: PLAVIX 75 MG PO (08:22)
[2023-09-20] MEDS: HYDREA 1000 MG PO (08:22)
[2023-09-20] MEDS: LOW STRENGTH ASPIRIN 81 MG PO (08:23)
[2023-09-20] MEDS: BACTROBAN 2% OINTMENT 1 APPLIC NASAL (08:23)
[2023-09-20] MEDS: LIPITOR 40 MG PO (08:23)
--- NOTE | 2023-09-20 08:30 | PTCARENOTE ---
Patient received from shift coordinator resting comfortably oob in chair, AAO X 3, denies pain. NSR via cm, SaO2 @ 93% on RA. RIJ Cordis w/ kvo infusing. All procedural sites stable. Patient updated to plan of care for the day, including possible d/c home
later today, in agreement. See work list for full assessment and interventions performed.
--- NOTE | 2023-09-20 09:09 | W.PN.CARDCBS ---
Today's Communication / Plan
-
Post-op care per CTS
Continue GDMT
OOB as tolerated
ACEi (low dose) if able with BP
Impression / Plan
-
PCP: Dr. Marsha Alfredo
Cardiology: Dr. Platt
Impression:
CAD s/p Off Pump CABG x 2 with BOURNE to LAD and SVG to RPDA 09/16/2023
CAD s/p IWMI and RCA PCI in 2014
HTN
DM 2
Active smoker
ICM, EF 45% by echo at [facility] 01/29/23, EF 25% by perfusion imaging 08/14/23, 35-40% by v-gram 08/21/23, 50% by post-op CARLOS 09/16/23
Hyperlipidemia
Hyperglycemia
Neuropathy
Obesity-BMI 34
Echo 01/29/23: [facility] study, EF 45-50%, mod conc LVH, apex, mid and apical anterior septum, apical anterior segment and apical inferior segment are abnormal, aneurysmal anterior apex
Plan:
-Presented to 09/16/2023 for planned Off Pump CABG x 2 with BOURNE to LAD and SVG to DA 09/16/2023
-Doing well on POD#4; sitting in chair; continue diuresis
-Chest tubes and drains dc'd with significant improvement in his chest discomfort that was most likely consistent with pericarditis/pleuritis; improved
-ECG reviewed by me shows SR with improved ST changes; no complaints
-Remains in sinus rhythm on tele - continue PO Amiodarone
-Continue ASA and Plavix for graft patency
-EF reportedly reduced by echo at [facility] and then 35-40% by v-gram 08/21/23. EF read at 50% by post-op CARLOS images. Will follow
-Prior to admission patient was taking Coreg 3.125 mg BID. He was not taking an SHUBHAM/ARB/ARNI/aldosterone antagonist; BP remains stable but on lower side of normal; if able, start ACEi (low dose)
-LDL unknown, continue outpatient dose of atorvastatin 40 mg daily
-Encourage incentive spirometry
HPI 09/16/2023:
Patient follows with Dr. Platt and had cardiac cath at 08/21/23 after outpatient echo showed newly reduced EF and stress test showed new LAD and RCA territory ischemia. Patient has a h/o IWMI and RCA PCI in 2014. He still smokes as well as being
a diabetic. Patient was found to have multivessel CAD on cath and then saw Dr. Denise in the office as an outpatient where he was recommended CABG. Patient is now seen in CVICU post-op where he remains intubated and sedated. Levophed running at 2.
Progress Note - Pharmacy Picking Tech
Subjective
Date of Service: September 20, 2023
Patient seen and examined. No acute events overnight. Patient resting in chair. Denies cp, sob, palpitations, lh, dizziness, syncope, or focal weakness. Notes mild fatigue.
Objective
Labs:
09/20/23 04:38
09/20/23 04:38
Labs
Hgb 8.6 g/dL (13.0-18.0) L 09/20/23 04:38
Hct 25.9 % (39.0-52.0) L 09/20/23 04:38
Plt Count 625 10^3/uL (130-400) H 09/20/23 04:38
PT 16.5 Sec (11.4-14.6) H 09/16/23 16:16
INR 1.35 09/16/23 16:16
APTT 36.6 Sec (23.4-35.0) H 09/16/23 16:16
Sodium 134 mmol/L (135-145) L 09/20/23 04:38
Potassium 4.8 mmol/L (3.5-5.1) 09/20/23 04:38
BUN 50 mg/dl (9-20) H 09/20/23 04:38
Creatinine 1.1 mg/dL (0.7-1.3) 09/20/23 04:38
Glucose 182 mg/dl (70-99) H 09/20/23 04:38
Vital Signs and I&O:
Vital Signs
Temp Pulse Resp BP Pulse Ox
99.2 F 76 16 109/65 95
09/20/23 00:00 09/20/23 08:22 09/20/23 04:00 09/20/23 08:22 09/20/23 04:35
Vital Signs
Temp Pulse Resp BP Pulse Ox
99.2 F 76 16 109/65 95
09/20/23 00:00 09/20/23 08:22 09/20/23 04:00 09/20/23 08:22 09/20/23 04:35
Intake & Output
09/18/23 09/19/23 09/20/23 09/21/23
06:59 06:59 06:59 06:59
Intake Total 2078.1 / 2078.1 1154.5 / 1154.5 160 / 160
Output Total 1280 / 1280 1680 / 1680 2575 / 2575
Balance 798.1 / 798.1 -525.5 / -525.5 -2415 / -2415
Physical Exam
Physical Exam
GEN: No distress, awake, Ox3; sitting in chair
HEENT: supple, anicteric, mmm
LUNGS: Poor inspiratory effort, mild crackles at bases CTA, no wheezes/rales
CV: Reg, S1/S2, no murmur, gallop; no appreciated rub
ABD: soft, BS+, NT/ND
EXT: No edema, clubbing or cyanosis
NEURO: Gross non-focal
SKIN: No rash, warm, pink
--- NOTE | 2023-09-20 09:33 | W.DCSUMMARY ---
Discharge Summary
Discharge Data
Date of Admission: 09/16/23
Date of Discharge: 09/20/23
-
Pending Results: No
Hospital Course
Primary care physician: Marsha Ricardo
Outpatient platform attendant: Syed Platt
Inpatient consultants: [facility] cardiology
Procedures:
1. Off-pump CABG
Primary Diagnosis:
1. Coronary artery disease
Secondary Diagnoses:
1. History of inferior wall TX with stent to right coronary artery 2014
2. Hypertension
3. Type 2 diabetes (A1C 11.4)
4. Diabetic neuropathy
5. Heart failure with reduced ejection fraction (45%)
6. Essential thrombocytosis
7. Current tobacco abuse
8. Acute surgical blood loss anemia expected
9. Acute kidney injury
HPI: Kalia Valdez is a 73-year-old male electively admitted on 09/16/2023 for off-pump CABG due to LAD and RCA disease.
Hospital course: Patient underwent off-pump CABG x 2 with BOURNE to LAD and saphenous vein graft to the RPDA with Dr. Denise on 09/15. Intraoperative CARLOS reports ejection fraction of 50% which is improved from cardiac cath LV gram on 08/21/2023 which
reported EF of 35 to 40%. Patient returned to CVICU on Levophed which was quickly weaned off. Patient maintained on 13 lactated Ringer 70 cc/h overnight. Creatinine on postop day 1 was 1.4. EKG on postop day 2 noted pericarditis and patient was
started on colchicine. Lactated Ringer's was discontinued. Chest tubes Nixon were removed and patient transitioned to insulin from insulin infusion. Creatinine peaked to 1.7 and plateaued, then decreased to 1.2 on day of discharge. Hydroxyurea
for his thrombocytosis was resumed patient was seen by diabetic nurse practitioner and NovoLog decreased to 20 units in the evening. Patient was instructed to increase back to 23 units if his blood sugar was greater than 150. Patient will be
discharged on Toprol-XL per discussion with cardiology. Due to normal systolic blood pressure of 109 mmHg, SHUBHAM inhibitor was initiated. Decision to be made by outpatient platform attendant. Pre-discharge chest x-ray reports �improved aeration, with
minimal residual left base atelectasis and pleural fluid, increased lung volumes compared to previous exams. Minimal right base pleural fluid posteriorly. Patient completed steps with physical therapy and was deemed appropriate for discharge to
home today.
Home medication changes:
See below
Discharge Plan
-
Patient Disposition: Home (Routine Discharge)
Discharge Diagnosis/Procedures: CAD/CABG
Condition: Good
Diet: Diabetic, Carb Controlled
Activity: No strenuous activity
Driving Restrictions: Not until seen by your Dr
Bathing Restrictions: OK to Shower
Other Services: Cardiac Rehab
Specialty Instructions: Weigh Daily- Call MD for wt gain/loss 3 lbs overnight/5 lbs in 1 week
Activity Restrictions/Additional Instructions:
Please call to make appointments for Phase II Cardiac Rehab:
[facility]
[address] [place] [address]
[facility]
[phone] [facility]
Referrals:
CT Transitional Care Nurse [Outside] - in one to two days
(
The Cardiothoracic Transitional Care Nurse will call you to set up a visit in 1-2 days.)
Marsha Alfredo MD [Family Provider] - in four to six weeks (Please make an appointment in four to six weeks. )
Linden Linder MD [Active] -
(Dr. Linder or [employer]
Eventual PFTs, ongoing smoking cessation counseling, and sleep study)
Good Denise MD [Active] - 10/17/23 1:30 pm
Michell Platt MD [Active] - 11/01/23 10:45 am
Prescriptions:
New
clopidogrel 75 mg Tablet
75 mg PO DAILY Qty: 30 1RF
acetaminophen 325 mg Tablet
650 mg PO Q4HPRN PRN (Reason: mild pain,headache,temp >101F ) Qty: 0 0RF
pantoprazole 40 mg Tablet,Delayed Release (Dr/Ec)
40 mg PO DAILY Qty: 30 1RF
insulin aspart U-100 100 unit/mL (3 mL) Insulin Pen
18 unit SC AC Qty: 15 0RF
metoprolol succinate [Toprol XL] 25 mg tablet extended release 24 hr
25 mg PO DAILY Qty: 30 1RF
cyclobenzaprine 10 mg Tablet
5 mg PO Q8HPRN PRN (Reason: muscle spasm) Qty: 20 0RF
Continued
fenofibric acid (choline) 45 mg Capsule,Delayed Release(Dr/Ec)
45 mg PO DAILY
Centrum Silver Men [phone] mcg Tablet
1 tab PO DAILY
insulin degludec [Tresiba FlexTouch U-100] 100 unit/mL (3 mL) Insulin Pen
70 unit SC HS
atorvastatin 40 MG tablet
40 mg PO DAILY
aspirin 81 MG tablet,delayed release (DR/EC)
81 mg PO DAILY
hydroxyurea 500 mg Capsule
1,000 mg PO DAILY Qty: 0 0RF
Changed
Humulin N NPH U-100 Insulin 100 unit/mL Suspension
20 unit SC HS Qty: 0 0RF
Rx Instructions:
if glucose is above 150, resume 23 units NPH @ HS.
Discontinued
insulin lispro 100 unit/mL Insulin Pen
0 sliding scale dose SC ACHS
carvedilol 3.125 MG tablet
3.125 mg PO BID
Discharge Orders:
Discharge Patient (As Directed); Ordered 09/20/23
Ordered By: Bouchra Carroll
Care Plan Goals
Care Plan Goals:
Problem: Readiness for enhanced knowledge related to diagnosis and treatment plan
Goal: Understand your diagnosis and treatment plan needs, including medications if applicable.
Instructions: Know your diagnosis, underlying causes and treatment plan options, including medications if applicable. Consult with your health care team to learn about your diagnosis and treatment plan, including medications if applicable.
--- NOTE | 2023-09-20 10:17 | CM ---
Reviewed chart. Met with Mr. Valdez to review discharge plans. He states he is feeling well and maybe able to go home soon. Prior to admission he resides with his spouse in a two story home with two steps to enter. He has fifteen steps to get
to bedroom/full bathroom. He has a powder room on the first floor. He ambulated in the hallway today. He states his spouse will be home to assist in his care if needed. We reviewed a home visit by the Cardiothoracic Transitional Care Nurse. He
is agreeable to a hoe visit. Medical work-up in progress. The discharge plan is to return home with his spouse and a home visit by the Cardiothoracic Transitional Care Nurse when medically stable.
[2023-09-20] MEDS: NSS IV (11:28)
--- NOTE | 2023-09-20 12:06 | PTCARENOTE ---
VS obtained, assessment stable. Patient ambulating ad zahira in room. Set up for shower, completed independently.
--- NOTE | 2023-09-20 14:08 | PN.CDI ---
CDI
- -
CDI:
Physician Documentation Request
Admit Date: 09/16/23 08:[address] Surgery,
Clinical Indicators:
Patient admitted with multivessel CAD; s/p Off-pump CABG x 2 09/15.
Lasix 40 mg IV daily x 4 doses given.
09/18 PN, 'Acute postop hypovolemia with subsequent hypervolemia.'
09/19 Discharge Summary: Heart Failure with reduced ejection fraction (45 %)
Please provide further specificity regarding the most likely acuity of CHF you are evaluating, treating or monitoring.
Acute on chronic HFrEF
Chronic HFrEF; post op hypervolemia only
Other, please specify
Use of terms such as suspected, likely, concern for, or probable (associated with a specific diagnosis that is being evaluated, monitored, or treated as if it exists) are acceptable and can be coded in the inpatient setting, when documented at the
time of discharge.
Thank you,
COLLETTE Rockwell RN
CDI Specialist
available via tiger text
Please use your independent medical judgment in providing your response.
--- NOTE | 2023-09-20 14:41 | PTCARENOTE ---
Discharge instructions thoroughly reviewed w/patient and spouse, all questions answered. PIV removed. Patient and all belongings transported to waiting vehicle for d/c home to private residence.
== END 2023-09-20 14:30 | disposition home or self-care (01) | DRG 236 ==
LOC: CVICU 08:18
PROVIDERS: Nurse Practitioner; ADMITTING PHYSICIAN Thoracic Surgery (Cardiothoracic Vascular Surgery); CONSULT PHYSICIAN Internal Medicine Cardiovascular Disease; CONSULT PHYSICIAN Internal Medicine Critical Care Medicine; FAMILY PHYSICIAN Family Medicine
PROC: 06BP4ZZ Excision of Right Saphenous Vein, Percutaneous Endoscopic Approach (ICD-10-PCS; 2023-09-16)
PROC: 02100Z9 Bypass Coronary Artery, One Artery from Left Internal Mammary, Open Approach (ICD-10-PCS; 2023-09-16)
PROC: B24BZZ4 Ultrasonography of Heart with Aorta, Transesophageal (ICD-10-PCS; 2023-09-16)
PROC: 0210093 Bypass Coronary Artery, One Artery from Coronary Artery with Autologous Venous Tissue, Open Approach (ICD-10-PCS; 2023-09-16)
DX: I25.119 Atherosclerotic heart disease of native coronary artery with unspecified angina pectoris (principal); D62 Acute posthemorrhagic anemia; N17.9 Acute kidney failure, unspecified; J98.11 Atelectasis; J90 Pleural effusion, not elsewhere classified; I30.9 Acute pericarditis, unspecified; E87.1 Hypo-osmolality and hyponatremia; I50.22 Chronic systolic (congestive) heart failure; I25.82 Chronic total occlusion of coronary artery; I11.0 Hypertensive heart disease with heart failure; D47.3 Essential (hemorrhagic) thrombocythemia; E78.5 Hyperlipidemia, unspecified; E11.40 Type 2 diabetes mellitus with diabetic neuropathy, unspecified; E11.65 Type 2 diabetes mellitus with hyperglycemia; G47.33 Obstructive sleep apnea (adult) (pediatric); E83.51 Hypocalcemia; E86.1 Hypovolemia; D72.829 Elevated white blood cell count, unspecified; E87.70 Fluid overload, unspecified; I25.5 Ischemic cardiomyopathy; I42.0 Dilated cardiomyopathy; E66.9 Obesity, unspecified; F17.210 Nicotine dependence, cigarettes, uncomplicated; D75.839 Thrombocytosis, unspecified; I25.2 Old myocardial infarction; Z80.6 Family history of leukemia; Z79.82 Long term (current) use of aspirin; Z79.4 Long term (current) use of insulin; Z95.5 Presence of coronary angioplasty implant and graft; Z68.36 Body mass index [BMI] 36.0-36.9, adult
CPT/HCPCS: 36415; 71045; 71046; 80048; 80053; 81003; 82248; 82330; 82565; 82805; 82947; 82962; 83735; 84132; 84302; 84520; 85014; 85018; 85025; 85027; 85049; 85610; 85730; 86850; 86900; 86901; 86920; 87070; 93005; 93312; 93320; 93325; 93880; 93970; 94002; 94010; 99406; P9045